=== PATIENT | female | born 1985 | race Two or more races ===

== ENCOUNTER 2017-12-10 09:00 | Emergency (ER) | payer OTHER ==
--- NOTE | 2017-12-10 09:35 | EDM.PDOC ---
ED HPI GENERAL MEDICAL PROBLEM - General Chief Complaint: General Stated Complaint: SWOLLEN RT SIDE FACE Time Seen by Provider: 12/10/17 09:33 Source of Information: Reports: Patient - History of Present Illness INITIAL COMMENTS - FREE TEXT/NARRATIVE: HISTORY AND PHYSICAL: History of present illness: []Patient presents with right-sided facial pain and swelling that began this morning she denies fever nausea vomiting chills sweats she does have known poor dentition on the right upper but there is no swelling or tenderness associated with these teeth which are warranted gumline No fever nausea vomiting chills sweats no chest pain shortness breath headache dizziness palpitation no bowel or urine symptoms Patient notes Ceclor allergy however she has taken amoxicillin on numerous occasions without any reaction Review of systems: As per history of present illness and below otherwise all systems reviewed and negative. Past medical history: As per history of present illness and as reviewed below otherwise noncontributory. Surgical history: As per history of present illness and as reviewed below otherwise noncontributory. Social history: No reported history of drug or alcohol abuse. Family history: As per history of present illness and as reviewed below otherwise noncontributory. Physical exam: HEENT: Atraumatic, normocephalic, pupils reactive, negative for conjunctival pallor or scleral icterus, mucous membranes moist, throat clear, neck supple, nontender, trachea midline. Her dentition is above tender maxillary sinus on the right and in general signs Lungs: Clear to auscultation, breath sounds equal bilaterally, chest nontender. Heart: S1S2, regular, negative for clicks, rubs, or JVD. Abdomen: Soft, nondistended, nontender. Negative for masses or hepatosplenomegaly. Negative for costovertebral tenderness. Pelvis: Stable nontender. Genitourinary: Deferred. Rectal: Deferred. Extremities: Atraumatic, negative for cords or calf pain. Neurovascular unremarkable. Neuro: Awake, alert, oriented. Cranial nerves II through XII unremarkable. Cerebellum unremarkable. Motor and sensory unremarkable throughout. Exam nonfocal. Diagnostics: [Clinical ] Therapeutics: []Amoxicillin 875 by mouth twice a day #20 no refill Impression: [Sinusitis Dental caries ] Definitive disposition and diagnosis as appropriate pending reevaluation and review of above. Right side of face Pain Score (Numeric/FACES): 7 - Related Data Home Meds: Home Meds . 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 Social & Family History - Family History Family Medical History: Noncontributory - Tobacco Use Smoking Status *Q: Never Smoker Second Hand Smoke Exposure: No - Caffeine Use Caffeine Use: Reports: Coffee - Recreational Drug Use Recreational Drug Use: No ED ROS GENERAL - Review of Systems Review Of Systems: See Below ED EXAM, GENERAL - Physical Exam Exam: See Below Course - Vital Signs Last Recorded V/S: Last Vital Signs Temp 96.9 F 12/10/17 09:10 Pulse 78 12/10/17 09:10 Resp 16 12/10/17 09:10 BP 149/90 H 12/10/17 09:10 Pulse Ox 96 12/10/17 09:10 Departure - Departure Time of Disposition: 09:36 Disposition: Home, Self-Care 01 Condition: Good Clinical Impression: Sinusitis - Discharge Information Referrals: PCP,None [Primary Care Provider] - Forms: ED Department Discharge Additional Instructions: The following information is given to patients seen in the emergency department who are being discharged to home. This information is to outline your options for follow-up care. We provide all patients seen in our emergency department with a follow-up referral. The need for follow-up, as well as the timing and circumstances, are variable depending upon the specifics of your emergency department visit. If you don't have a primary care physician on staff, we will provide you with a referral. We always advise you to contact your personal physician following an emergency department visit to inform them of the circumstance of the visit and for follow-up with them and/or the need for any referrals to a consulting specialist. The emergency department will also refer you to a specialist when appropriate. This referral assures that you have the opportunity for follow-up care with a specialist. All of these measure are taken in an effort to provide you with optimal care, which includes your follow-up. Under all circumstances we always encourage you to contact your private physician who remains a resource for coordinating your care. When calling for follow-up care, please make the office aware that this follow-up is from your recent emergency room visit. If for any reason you are refused follow-up, please contact the [facility] emergency department at and asked to speak to the emergency department charge nurse.
== END 2017-12-10 09:53 | disposition home or self-care (01) ==
LOC: MW.ED 09:00
DX: J32.9 Chronic sinusitis, unspecified (principal); K02.9 Dental caries, unspecified
CPT/HCPCS: 99283

== ENCOUNTER 2018-08-26 16:58 | Emergency (ER) | payer MEDICAID ==
[2018-08-26] MEDS ORDERED: Sodium Chloride 0.9% 1,000 ML IV ONE (17:20)
[2018-08-26] MEDS ORDERED: Ondansetron 4 MG/2 ML SDV IVPUSH ONE (17:20)
--- NOTE | 2018-08-26 17:21 | EDM.PDOC ---
<Wicho Ospina - Last Filed: 08/26/18 17:52> ED HPI GENERAL MEDICAL PROBLEM - General Chief Complaint: Gastrointestinal Problem Stated Complaint: flu Time Seen by Provider: 08/26/18 17:21 Source of Information: Reports: Patient - History of Present Illness INITIAL COMMENTS - FREE TEXT/NARRATIVE: HISTORY AND PHYSICAL: History of present illness: [Patient presents with abdominal pain 5 out of 10 right lower quadrant along with fever nausea vomiting diarrhea which began earlier today ] Review of systems: As per history of present illness and below otherwise all systems reviewed and negative. Past medical history: As per history of present illness and as reviewed below otherwise noncontributory. Surgical history: As per history of present illness and as reviewed below otherwise noncontributory. Social history: No reported history of drug or alcohol abuse. Family history: As per history of present illness and as reviewed below otherwise noncontributory. Physical exam: HEENT: Atraumatic, normocephalic, pupils reactive, negative for conjunctival pallor or scleral icterus, mucous membranes moist, throat clear, neck supple, nontender, trachea midline. Lungs: Clear to auscultation, breath sounds equal bilaterally, chest nontender. Heart: S1S2, regular, negative for clicks, rubs, or JVD. Abdomen: Soft, nondistended, tenderness on deep palpation right lower quadrant no guarding or rebound Negative for masses or hepatosplenomegaly. Negative for costovertebral tenderness. Pelvis: Stable nontender. Genitourinary: Deferred. Rectal: Deferred. Extremities: Atraumatic, negative for cords or calf pain. Neurovascular unremarkable. Neuro: Awake, alert, oriented. Cranial nerves II through XII unremarkable. Cerebellum unremarkable. Motor and sensory unremarkable throughout. Exam nonfocal. Diagnostics: [EBC CMP blood cultures lipase CT abdomen pelvis with contrast UA hCG] Therapeutics: [Normal saline Zofran Morphine ] Impression: [Abdominal pain Fever nausea vomiting diarrhea] Definitive disposition and diagnosis as appropriate pending reevaluation and review of above. Abdomen Pain Score (Numeric/FACES): 6 - Related Data Allergies Allergy/AdvReac Type Severity Reaction Status Date / Time cefaclor Allergy Anaphylactic Verified 02/03/18 21:14 Shock Home Meds: Home Meds . 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, - Infectious Disease History Infectious Disease History: Reports: Chicken Pox - Past Surgical History Female Surgical History: Reports: Section (x 3, 2008, 2010, 2012) Social & Family History - Family History Family Medical History: Noncontributory - Caffeine Use Caffeine Use: Reports: Coffee, Energy Drinks, Soda, Tea Course - Vital Signs Last Recorded V/S: Last Vital Signs Temp 37.1 C 08/26/18 19:10 Pulse 85 08/26/18 19:10 Resp 18 08/26/18 19:10 BP 129/85 08/26/18 19:10 Pulse Ox 98 08/26/18 19:10 - Orders/Labs/Meds Orders: Active Orders 24 hr Category Date Time Status CULTURE BLOOD [BC] Stat Lab 08/26/18 17:28 Received CULTURE BLOOD [BC] Stat Lab 08/26/18 17:28 Received Blood Culture x2 Reflex Set [OM.PC] Stat Oth 08/26/18 17:22 Ordered Labs: Laboratory Tests 08/26/18 08/26/18 08/26/18 Range/Units 17:39 17:39 17:55 WBC 15.05 H (4.0-11.0) K/uL RBC 5.07 (4.30-5.90) M/uL Hgb 15.7 (12.0-16.0) g/dL Hct 44.2 (36.0-46.0) % MCV 87.2 (80.0-98.0) fL MCH 31.0 (27.0-32.0) pg MCHC 35.5 (31.0-37.0) g/dL RDW Std Deviation 40.1 (28.0-62.0) fl RDW Coeff of Khang 13 (11.0-15.0) % Plt Count 295 (150-400) K/uL MPV 10.00 (7.40-12.00) fL Neut % (Auto) 91.5 H (48.0-80.0) % Lymph % (Auto) 3.5 L (16.0-40.0) % [place] % (Auto) 4.6 (0.0-15.0) % Eos % (Auto) 0.3 (0.0-7.0) % Baso % (Auto) 0.1 (0.0-1.5) % Neut # (Auto) 13.8 H (1.4-5.7) K/uL Lymph # (Auto) 0.5 L (0.6-2.4) K/uL [place] # (Auto) 0.7 (0.0-0.8) K/uL Eos # (Auto) 0.0 (0.0-0.7) K/uL Baso # (Auto) 0.0 (0.0-0.1) K/uL Nucleated RBC % 0.0 /100WBC Nucleated RBCs # 0 K/uL Sodium 138 (136-145) mmol/L Potassium 3.7 (3.5-5.1) mmol/L Chloride 101 (98-107) mmol/L Carbon Dioxide 24.7 (21.0-32.0) mmol/L BUN 12 (7.0-18.0) mg/dL Creatinine 0.9 (0.6-1.0) mg/dL Est Cr Clr Drug Dosing 75.61 mL/min Estimated GFR (MDRD) > 60.0 ml/min Glucose 119 H (74-106) mg/dL Calcium 9.2 (8.5-10.1) mg/dL Total Bilirubin 0.9 (0.2-1.0) mg/dL AST 34 (15-37) IU/L ALT 58 (14-63) IU/L Alkaline Phosphatase 78 (46-116) U/L Total Protein 8.3 H (6.4-8.2) g/dL Albumin 4.4 (3.4-5.0) g/dL Globulin 3.9 (2.6-4.0) g/dL Albumin/Globulin Ratio 1.1 (0.9-1.6) Lipase 77 (73-393) U/L Urine Color YELLOW Urine Appearance CLOUDY Urine pH 5.5 (5.0-8.0) Ur Specific Carson 1.025 (1.001-1.035) Urine Protein TRACE H (NEGATIVE) mg/dL Urine Glucose (UA) NEGATIVE (NEGATIVE) mg/dL Urine Ketones 15 H (NEGATIVE) mg/dL Urine Occult Blood SMALL H (NEGATIVE) Urine Nitrite NEGATIVE (NEGATIVE) Urine Bilirubin NEGATIVE (NEGATIVE) Urine Urobilinogen 0.2 (<2.0) EU/dL Ur Leukocyte Esterase NEGATIVE (NEGATIVE) Urine RBC 0-2 (0-2/HPF) Urine WBC 0-3 (0-5/HPF) Ur Epithelial Cells MANY (NONE-FEW) Amorphous Sediment HEAVY (NEGATIVE) Urine Bacteria FEW (NEGATIVE) Urine HCG, Qual (NEGATIVE) 08/26/18 Range/Units 17:55 WBC (4.0-11.0) K/uL RBC (4.30-5.90) M/uL Hgb (12.0-16.0) g/dL Hct (36.0-46.0) % MCV (80.0-98.0) fL MCH (27.0-32.0) pg MCHC (31.0-37.0) g/dL RDW Std Deviation (28.0-62.0) fl RDW Coeff of Khang (11.0-15.0) % Plt Count (150-400) K/uL MPV (7.40-12.00) fL Neut % (Auto) (48.0-80.0) % Lymph % (Auto) (16.0-40.0) % [place] % (Auto) (0.0-15.0) % Eos % (Auto) (0.0-7.0) % Baso % (Auto) (0.0-1.5) % Neut # (Auto) (1.4-5.7) K/uL Lymph # (Auto) (0.6-2.4) K/uL [place] # (Auto) (0.0-0.8) K/uL Eos # (Auto) (0.0-0.7) K/uL Baso # (Auto) (0.0-0.1) K/uL Nucleated RBC % /100WBC Nucleated RBCs # K/uL Sodium (136-145) mmol/L Potassium (3.5-5.1) mmol/L Chloride (98-107) mmol/L Carbon Dioxide (21.0-32.0) mmol/L BUN (7.0-18.0) mg/dL Creatinine (0.6-1.0) mg/dL Est Cr Clr Drug Dosing mL/min Estimated GFR (MDRD) ml/min Glucose (74-106) mg/dL Calcium (8.5-10.1) mg/dL Total Bilirubin (0.2-1.0) mg/dL AST (15-37) IU/L ALT (14-63) IU/L Alkaline Phosphatase (46-116) U/L Total Protein (6.4-8.2) g/dL Albumin (3.4-5.0) g/dL Globulin (2.6-4.0) g/dL Albumin/Globulin Ratio (0.9-1.6) Lipase (73-393) U/L Urine Color Urine Appearance Urine pH (5.0-8.0) Ur Specific Carson (1.001-1.035) Urine Protein (NEGATIVE) mg/dL Urine Glucose (UA) (NEGATIVE) mg/dL Urine Ketones (NEGATIVE) mg/dL Urine Occult Blood (NEGATIVE) Urine Nitrite (NEGATIVE) Urine Bilirubin (NEGATIVE) Urine Urobilinogen (<2.0) EU/dL Ur Leukocyte Esterase (NEGATIVE) Urine RBC (0-2/HPF) Urine WBC (0-5/HPF) Ur Epithelial Cells (NONE-FEW) Amorphous Sediment (NEGATIVE) Urine Bacteria (NEGATIVE) Urine HCG, Qual NEGATIVE (NEGATIVE) Meds: Medications Discontinued Medications Generic Name Dose Route Start Last Admin Trade Name Rodneyq PRN Reason Stop Dose Admin Sodium Chloride 1,000 mls @ 999 mls/hr 08/26/18 17:20 08/26/18 17:43 Normal Saline IV 08/26/18 18:20 999 mls/hr STAT ONE Administration Morphine Sulfate 2 mg 08/26/18 17:51 08/26/18 17:58 Morphine IVPUSH 08/26/18 17:52 2 mg ONETIME ONE Administration Ondansetron HCl 8 mg 08/26/18 17:20 08/26/18 17:43 Zofran IVPUSH 08/26/18 17:21 8 mg ONETIME ONE Administration Departure - Departure Disposition: Home, Self-Care 01 Clinical Impression: Abdominal pain - Discharge Information Referrals: PCP,None [Primary Care Provider] - Forms: ED Department Discharge Additional Instructions: The following information is given to patients seen in the emergency department who are being discharged to home. This information is to outline your options for follow-up care. We provide all patients seen in our emergency department with a follow-up referral. The need for follow-up, as well as the timing and circumstances, are variable depending upon the specifics of your emergency department visit. If you don't have a primary care physician on staff, we will provide you with a referral. We always advise you to contact your personal physician following an emergency department visit to inform them of the circumstance of the visit and for follow-up with them and/or the need for any referrals to a consulting specialist. The emergency department will also refer you to a specialist when appropriate. This referral assures that you have the opportunity for followup care with a specialist. All of these measure are taken in an effort to provide you with optimal care, which includes your followup. Under all circumstances we always encourage you to contact your private physician who remains a resource for coordinating your care. When calling for followup care, please make the office aware that this follow-up is from your recent emergency room visit. If for any reason you are refused follow-up, please contact the [facility] emergency department at and asked to speak to the emergency department charge nurse. Clear liquids as discussed follow-up primary medical doctor as needed as discussed and return as needed as discussed <Rony Joshi - Last Filed: 08/26/18 20:23> ED ROS GENERAL - Review of Systems Review Of Systems: ROS reveals no pertinent complaints other than HPI. ED EXAM, GENERAL - Physical Exam Exam: See Below (The dictation) Departure - Departure Time of Disposition: 20:23 Condition: Good
[2018-08-26] MEDS ORDERED: Morphine 2 MG/ML Syringe IVPUSH ONE (17:51)
[2018-08-26 18:05] LABS: CHLORIDE,CL 101 mmol/L (98-107); SODIUM,NA 138 mmol/L (136-145)
--- NOTE | 2018-08-26 19:48 | CT ---
INDICATION: PAIN IN ABD. N/V/D. COMPARISON: None available. TECHNIQUE: Routine axial CT images of the abdomen and pelvis following the uneventful administration of IV contrast. Sagittal and coronal reformatted series were also generated and reviewed. Total exam DLP 1,482 mGy-cm. FINDINGS: Lower chest is unremarkable. - There is mild hepatomegaly with the liver measuring 23.8 cm craniocaudad. No suspicious intrahepatic mass or biliary ductal dilatation. The gallbladder, pancreas, spleen and adrenal glands are within normal limits. There is symmetric enhancement of the kidneys. No hydronephrosis. - The major vascular structures demonstrate normal course and caliber. There is no evidence of aneurysm. There is no suspicious abdominal or pelvic adenopathy. - There is no bowel obstruction or ascites. The appendix is normal. No focal inflammatory change, perforation or abscess. - The urinary bladder is decompressed. The uterus is unremarkable for age. Ill-defined low attenuation lesions in both adnexa, nonspecific. There is no free fluid in the pelvis. - Limbus vertebral body at T12. No acute or aggressive osseous findings. IMPRESSION: 1. No acute findings in the abdomen or pelvis. No specific CT abnormality to explain the patient`s reported symptoms. 2. Other findings, as above. Dictated by Napoleon Daly MD @ 08/26/2018 7:45:27 PM Please note that all CT scans at this facility use dose modulation, iterative reconstruction, and/or weight-based dosing when appropriate to reduce radiation dose to as low as reasonably achievable. Dictated by: Napoleon Daly MD @ 08/26/2018 19:45:54 (Electronically Signed)
== END 2018-08-26 20:40 | disposition home or self-care (01) ==
LOC: MW.ED 16:58
DX: R10.31 Right lower quadrant pain (principal); Z88.8 Allergy status to other drugs, medicaments and biological substances
CPT/HCPCS: 36415; 74177; 80053; 81001; 81025; 83690; 85025; 87040; 96361; 96374; 96375; 99284; J2270; J2405; J7040

== ENCOUNTER 2018-09-23 08:53 | Day surgery (SDC) | payer MEDICAID, OTHER ==
[~2018-09-23 08:53] MED LIST: Lactated Ringers 1,000 ML IV SCH
[2018-09-23] MEDS ORDERED: Midazolam 1 MG/ML 2 ML SDV ONE (08:54)
[2018-09-23] MEDS ORDERED: Lidocaine 2% 5 ML SDV ONE (08:54)
[2018-09-23] MEDS ORDERED: fentaNYL 100 MCG/2 ML SDV ONE (08:54)
[2018-09-23] MEDS ORDERED: Propofol 200 MG/20 ML SDV ONE (08:54)
[2018-09-23] MEDS ORDERED: Fluorescein 5 ML Vial ONE (09:28)
[2018-09-23] MEDS ORDERED: Methylene Blue 50 MG/10 ML Ampule ONE (09:28)
[2018-09-23] MEDS ORDERED: Bupivacaine 0.25% 10 ML SDV ONE (09:28)
--- NOTE | 2018-09-23 09:30 | PCM.PREANE ---
Preanesthetic Assessment - Anesthesia/Transfusion/Family Hx Anesthesia History: Prior Anesthesia Without Reaction Transfusion History: No Prior Transfusion(s) - Review of Systems General: No Symptoms Pulmonary: No Symptoms Cardiovascular: No Symptoms Gastrointestinal: No Symptoms Neurological: No Symptoms Other: Reports: None - Physical Assessment Height: 1.61 m Weight: 104.78 kg ASA Class: 3 Mental Status: Alert & Oriented x3 Airway Class: Mallampati = 1 Dentition: Reports: Broken Tooth/Teeth (left upper front tooth) Thyro-Mental Finger Breadths: 3 Mouth Opening Finger Breadths: 3 ROM/Head Extension: Full Lungs: Clear to Auscultation, Normal Respiratory Effort Cardiovascular: Regular Rate, Regular Rhythm - Lab Values: Laboratory Last Values WBC 10.98 K/uL (4.0-11.0) 09/22/18 13:09 RBC 4.74 M/uL (4.30-5.90) 09/22/18 13:09 Hgb 14.5 g/dL (12.0-16.0) 09/22/18 13:09 Hct 41.4 % (36.0-46.0) 09/22/18 13:09 MCV 87.3 fL (80.0-98.0) 09/22/18 13:09 MCH 30.6 pg (27.0-32.0) 09/22/18 13:09 MCHC 35.0 g/dL (31.0-37.0) 09/22/18 13:09 RDW Std Deviation 39.7 fl (28.0-62.0) 09/22/18 13:09 RDW Coeff of Khang 12 % (11.0-15.0) 09/22/18 13:09 Plt Count 316 K/uL (150-400) 09/22/18 13:09 MPV 9.60 fL (7.40-12.00) 09/22/18 13:09 Nucleated RBC % 0.0 /100WBC 09/22/18 13:09 Nucleated RBCs # 0 K/uL 09/22/18 13:09 HCG, Qual NEGATIVE (NEG) 09/22/18 13:09 - Allergies Allergies/Adverse Reactions: Allergies Allergy/AdvReac Type Severity Reaction Status Date / Time cefaclor [From [facility]] Allergy Anaphylactic Verified 09/22/18 12:43 Shock - Acknowledgements Anesthesia Type Planned: General Anesthesia Pt an Appropriate Candidate for the Planned Anesthesia: Yes Alternatives and Risks of Anesthesia Discussed w Pt/Guardian: Yes Pt/Guardian Understands and Agrees with Anesthesia Plan: Yes PreAnesthesia Questionnaire HEENT History: Reports: None Cardiovascular History: Reports: None Respiratory History: Reports: None Gastrointestinal History: Reports: GERD (diet related) Genitourinary History: Reports: None 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 OB/BYN History: ovarian cysts Musculoskeletal History: Reports: Fracture Other Musculoskeletal History: hx of fx ankle Neurological History: Reports: None Psychiatric History: Reports: None Endocrine/Metabolic History: Reports: Obesity/BMI 30+ (morbid obesity) Hematologic History: Reports: None Immunologic History: Reports: None Oncologic (Cancer) History: Reports: None Dermatologic History: Reports: None - Infectious Disease History Infectious Disease History: Reports: Chicken Pox - Past Surgical History HEENT Surgical History: Reports: Other (See Below) (wisdom teeth extractions) Female Surgical History: Reports: Section (x2) Other Female Surgeries/Procedures: x3 - SUBSTANCE USE Smoking Status *Q: Never Smoker Days Per Week of Alcohol Use: 0 (ocassional etoh) Recreational Drug Use History: No - HOME MEDS Home Medications: Home Meds . [No Known Home Meds] 08/26/18 [History] - CURRENT (IN HOUSE) MEDS Current Meds: Current Medications Lactated Ringer's (Ringers, Lactated) 1,000 mls @ 125 mls/hr IV ASDIRECTED LEEANNE Discontinued Medications Fentanyl (Sublimaze) Confirm Administered Dose 100 mcg .ROUTE .STK-MED ONE Stop: 09/23/18 08:55 Lidocaine (Xylocaine-Mpf 2%) Confirm Administered Dose 5 ml .ROUTE .STK-MED ONE Stop: 09/23/18 08:55 Midazolam HCl (Versed 1 Mg/Ml) Confirm Administered Dose 2 mg .ROUTE .STK-MED ONE Stop: 09/23/18 08:55 Propofol (Diprivan 20 Ml) Confirm Administered Dose 200 mg .ROUTE .STK-MED ONE Stop: 09/23/18 08:55
[2018-09-23] MEDS ORDERED: HYDROmorphone 2 MG/ML SDV IVPUSH PRN (09:46)
[2018-09-23] MEDS ORDERED: Ondansetron 4 MG/2 ML SDV IVPUSH PRN (09:46)
[2018-09-23] MEDS ORDERED: Rocuronium 100 MG/10 ML MDV ONE (10:14)
[2018-09-23] MEDS ORDERED: Succinylcholine 200 MG/10 ML MDV ONE (10:14)
[2018-09-23] MEDS ORDERED: Dexamethasone 4 MG/ML 5 ML MDV ONE (10:47)
[2018-09-23] MEDS ORDERED: Ondansetron 4 MG/2 ML SDV ONE (10:47)
[2018-09-23] MEDS ORDERED: Ketorolac 30 MG/ML SDV ONE (10:47)
[2018-09-23] MEDS ORDERED: Neostigmine Methylsulfate 1 MG/ML 5 ML Syringe ONE (10:48)
[2018-09-23] MEDS ORDERED: Glycopyrrolate 0.2 MG/ML SDV ONE ×2 (10:48→11:35)
[2018-09-23] MEDS ORDERED: HYDROmorphone 2 MG/ML Syringe ONE (11:36)
[2018-09-23] MEDS ORDERED: Octyl 2-Cyanoacrylate 1 Tube ONE (11:44)
--- NOTE | 2018-09-23 12:05 | PCM.OPNOTE ---
- General Post-Op/Procedure Note Date of Surgery/Procedure: 09/23/18 Operative Procedure(s): operative laparoscopy with extensive lysis of adhesions , left salpingoophorectomy. Findings: dense adhesions of omentum to prior scar. Filmy adhesions of anterior cul de sac. Normal right tube and ovary with small fibroma. No endometriosis. Left hydrosalpinx, densely adherent to left ovary, ovary is adhesed to medial leaf of broad ligament. Pre Op Diagnosis: Pelvic pain, left adnexal mass. Post-Op Diagnosis: Same Anesthesia Technique: General ET Tube Primary Surgeon: Linda Lizarraga Anesthesia Provider: Rashida Khan General Doc: Sangeetha Mcdowell Pathology: left tube and ovary Fluid Replacement, Intraop: 1,200 EBL in mLs: 20 Complications: None Known. Condition: Good
[2018-09-23] MEDS: fentaNYL 100 MCG/2 ML SDV IVPUSH PRN ×2 (12:23→13:03)
--- NOTE | 2018-09-23 13:42 | PCM.POSTAN ---
POST ANESTHESIA ASSESSMENT - MENTAL STATUS Mental Status: Alert, Oriented - RESPIRATORY Respiratory Status: Respiratory Rate WNL, Airway Patent, O2 Saturation Stable - CARDIOVASCULAR CV Status: Pulse Rate WNL, Blood Pressure Stable - GASTROINTESTINAL GI Status: No Symptoms - POST OP HYDRATION Hydration Status: Adequate & Stable
--- NOTE | 2018-09-23 13:43 | PCM48HPAN ---
Post Anesthesia Note - EVALUATION WITHIN 48HRS OF ANESTHETIC Vital Signs in Normal Range: Yes Patient Participated in Evaluation: Yes Respiratory Function Stable: Yes Airway Patent: Yes Cardiovascular Function Stable: Yes Hydration Status Stable: Yes Pain Control Satisfactory: Yes Nausea and Vomiting Control Satisfactory: Yes Mental Status Recovered: Yes Resp Rate: 22
--- NOTE | 2018-09-23 14:27 | OR ---
SURGEON: Linda Lizarraga M.D. DATE OF PROCEDURE: 09/23/2018 PREOPERATIVE DIAGNOSES: Pelvic pain, left adnexal mass. POSTOPERATIVE DIAGNOSES: Pelvic pain, left adnexal mass with extensive pelvic adhesions and left tubo- ovarian complex with hydrosalpinx. PROCEDURES: Operative laparoscopy, extensive lysis of adhesions, left salpingo-oophorectomy. PRIMARY SURGEON: Linda Lizarraga MD. WORKERS COMPENSATION EXAMINER: Dara Mcdowell RN. ANESTHESIA: General endotracheal. FLUIDS: 1200 mL of crystalloid. ESTIMATED BLOOD LOSS: 20 mL. FINDINGS: The uterus sounded to 8 cm, was anteverted, and mobile on examination. Upon laparoscopy, there were dense adhesions noted between the omentum and the prior scar Pfannenstiel incision in the lower abdomen. There was a small right fibroma on the right ovary. There were filmy adhesions of the anterior cul-de-sac. There was no evidence of endometriosis. There was a large left hydrosalpinx densely adhered to the ovary and epiploica of the sigmoid as well as the ovary being adherent to the medial leaf of the broad ligament. At the end of the procedure, the left ureter was identified and was peristalsing without any evidence of trauma. COMPLICATIONS: None known. DISPOSITION: Stable to recovery. BRIEF HISTORY: This is a 32-year-old female. She is G3, P3, three prior deliveries when she lived in [place]. Following her last delivery, she began having pain in the left lower quadrant. She was noted to have an 8 cm cyst. She re- presented in the fall of 2017 to [facility] in the emergency room and was felt to have a left tubo-ovarian abscess. She was treated inpatient with antibiotics and for prolonged time-period with outpatient oral antibiotics. She has been afebrile for many months now, but persistently has pain and upon ultrasound there was a remaining 8 cm complex fluid-filled structure adjacent to the ovary, consistent with hydrosalpinx; and therefore, I did offer to proceed with laparoscopic evaluation with possible left salpingectomy, possible left oophorectomy, evaluation for adhesions, and possible biopsy or treatment of endometriosis with risks discussed including bleeding; infection; injury to bowel, bladder, blood vessels, or other organs; risk of thromboembolic event; and risk of anesthesia. Also, risks of laparotomy were discussed as well as risk of future infertility due to tubal damage. She understands this and is accepting. She has completed her family. DESCRIPTION OF PROCEDURE: With the patient in dorsal lithotomy position, under adequate general endotracheal anesthesia, the abdomen was prepped with chlorhexidine and the perineum and vagina were prepped with Betadine and draped in usual fashion for laparoscopic surgery. SCDs were in place. The bladder had been drained with a red Hewitt catheter and an appropriate time-out was held. Bimanual examination was performed with findings as noted above. The speculum was placed in the vagina. The cervix was grasped with an Allis clamp and dilated to an 8 mm Hegar dilator. The ZUMI uterine manipulator was placed without any difficulty and the balloon was filled with air. The speculum was removed from the vagina and envelope sealing machine operator's gloves were then changed. Attention was turned abdominally where 3 mL of 0.25% Marcaine was injected cephalad from the umbilicus. A 5 mm incision was made with a scalpel. The anterior abdominal wall was elevated. Veress needle was inserted. Opening pressure was 5 mmHg. CO2 was insufflated to develop an adequate pneumoperitoneum of 15 mmHg and the 5 mm port was placed. The laparoscope was placed into the abdominal cavity and there was no evidence of any trauma from the port placement site. There were obviously dense, extensive adhesions of the omentum to the anterior abdominal wall. Therefore, two additional ports were placed 2 cm medial and cephalad from the anterior superior iliac spine on the right and the left under direct visualization without any difficulty. The patient was then placed in steep Trendelenburg position. The adhesions were lysed using LigaSure, and once the extensive dense adhesions of the omentum had been lysed, the pelvis was more easily visualized. There were some filmy adhesions in the anterior cul-de-sac that were lysed. The uterus was then elevated and bowel was moved out of the pelvis. The left tubo-ovarian complex was densely adherent to the bowel epiploica, the presacral area, and the medial leaf of the broad ligament. The right tube and ovary were free without any adhesions or lesions and a small fibroma was noted on the right ovary. Attention was then turned to the left tubo-ovarian complex, and I began to proceed with dissection. Initially, I used the LigaSure to excise clearly visible adhesions between the ovary and the tube and was able to free up the fimbriae of the tube. In doing so, fluid exuded through the tube and this was clear fluid, not purulent in nature. The fimbriae of the tube were adherent to the bowel epiploica and these were lysed, being very cautious to be near the fimbriae and nowhere near the bowel. The Harmonic Juvenal was utilized to lyse these adhesions and dissection was performed with a Maryland clamp, and I was able to identify a plane between the ovary and the medial leaf of the broad ligament. Hydrodissection was then utilized to extend this plane, and using the Harmonic Juvenal to lyse adhesions, traction and countertraction, and hydrodissection, I was able to free the ovary from the medial leaf of the broad ligament. The ureter was identified and was just below the field of dissection. There was no trauma to any of the overlying tissue over the ureter. The peritoneum of the ureter was intact and the ureter was peristalsing normally. With the ovary freed, I was able to elevate the ovary and the tube together and now fairly normal anatomy was restored with the tube and ovary still densely adherent. I did doubly cauterize and ligate the infundibulopelvic ligament and then proceeded proximally along the mesosalpinx to the proximal mesosalpinx where the LigaSure was utilized to cross clamp the tube and utero-ovarian ligament. This being completed, a 10 mm port had been placed over the prior delivery scar in the midline and the EndoCatch bag was placed. The tube and ovary were placed in the EndoCatch bag. I extended the incision of the fascia laterally to allow removal of the tube and ovary, and this being completed, the 10 mm port was replaced to contain the insufflation and the pelvis was carefully irrigated and carefully inspected under high and low pressure and was hemostatic. Therefore, all the instruments were removed from the pelvis and the abdomen was completely desufflated. The ports were then removed. The fascia of the lower 10 mm port was closed with a running suture of 0 Polysorb. The other incisions as well as the skin portion of this incision was closed with subcuticular suture of 3-0 Monocryl. The ZUMI uterine manipulator was removed from the vagina. Final sponge, needle, and instrument counts were reported as correct. There were no known complications. The patient was transferred to recovery in good condition. MARY / PARVEEN /[id number] MTDD
== END 2018-09-23 14:00 | disposition home or self-care (01) ==
LOC: MW.SDS 08:53
PROVIDERS: ATTEND Obstetrics & Gynecology
DX: N83.02 Follicular cyst of left ovary (principal); N73.6 Female pelvic peritoneal adhesions (postinfective); N70.11 Chronic salpingitis; E66.01 Morbid (severe) obesity due to excess calories; Z68.41 Body mass index [BMI] 40.0-44.9, adult; Z88.1 Allergy status to other antibiotic agents
CPT/HCPCS: 36415; 58661; 84703; 85027; A9270; J0131; J0330; J1100; J1170; J1885; J2001; J2250; J2405; J2704; J3010; J3490; J7120; 00840; 88305

== ENCOUNTER 2019-06-13 13:09 | Emergency (ER) | payer MEDICAID, OTHER ==
[2019-06-13] MEDS ORDERED: Prochlorperazine 10 MG in Sodium Chloride 0.9% 50 ML IV ONE (14:37)
[2019-06-13] MEDS ORDERED: Sodium Chloride 0.9% 1,000 ML IV ONE (14:37)
[2019-06-13] MEDS ORDERED: Acetaminophen 500 MG Tab PO ONE (14:37)
[2019-06-13] MEDS ORDERED: diphenhydrAMINE 50 MG/ML SDV IVPUSH ONE (14:37)
[2019-06-13] MEDS ORDERED: Ketorolac 30 MG/ML SDV IVPUSH ONE (14:37)
--- NOTE | 2019-06-13 15:07 | CT ---
Head CT Technique: Multiple axial sections through the brain were obtained. Intravenous contrast was not utilized. Comparison: No prior intracranial imaging is available. Findings: Hyperdense mass is noted at the foramen of Bowers measuring about 1.2 cm which is felt compatible with colloid cyst. Ventricles are mildly dilated. This colloid cyst may be causing mild ventricular obstruction at the foramen of Bowers. No abnormal parenchymal densities are seen. No evidence of intracranial hemorrhage. No midline shift or mass effect is seen. Bone window settings were reviewed. Visualized mastoid sinuses are clear. Mucosal thickening is noted within both maxillary sinuses which is believed to be chronic. No acute calvarial abnormality is appreciated. Impression: 1. 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 2. Lateral ventricles are mildly dilated suggesting the possibility of the colloid cyst causing mild obstruction at the foramen of Monro. 3. No acute intracranial abnormality is otherwise seen. 4. Chronic-appearing findings within both inferior maxillary sinuses. Diagnostic code #3 Study was dictated in [place] Time
--- NOTE | 2019-06-13 16:26 | EDM.PDOC ---
ED HPI GENERAL MEDICAL PROBLEM - General Chief Complaint: Headache Stated Complaint: dizzy Time Seen by Provider: 06/13/19 14:14 - History of Present Illness INITIAL COMMENTS - FREE TEXT/NARRATIVE: HPI 33-year-old female migraineur presents for evaluation of one week, apparently gradual in onset headache that is more severe than her usual headaches and refractory to acetaminophen and Excedrin. Patient notes intermittent blurry vision. * Denies changes in hearing, fevers, neck stiffness, rashes, neck pain, temporal pain, jaw pain with chewing, dental pain, minor neck trauma, chiropractic manipulation, or head trauma. * Denies anticoagulation or hypercoaguable history. * No family members with similar symptoms. Unable to identify any higher risk exposures to possible carbon monoxide. * No OCP usage, denies current or in the last 3 months. M/S/F/SocHx notable for: please see HPI; remainder reviewed with patient and in chart. ROS: Negative constitutional, eye, cardiovascular, pulmonary, GI, , MSK, skin , neurologic, psychiatric, endocrine unless noted in the HPI. Exam HR 83, RR 20, BP 152/85, temperature (pending), SaO2 100% on room air. Gen: pleasant, nontoxic-appearing, appears moderately uncomfortable. HEENT: NC, AT,Dentition intact without visible caries. No frontal or maxillary sinus TTP. Temples without TTP bilaterally, equal 2+ temporal artery pulses. No paraspinal posterior neck pain. Resp: clear to auscultation bilaterally. Card: RRR GI: NT/ND : Deferred MSK: No visible deformities, strength and tone WNL. Skin: Normal color with no visible lesions. Neuro: alert and oriented 3, no facial asymmetry, no gaze preference, no slurring of speech. CN II-III: pupils equal and reactive (3->2mm bilaterally); III, IV, : EOMI, V1-V3: sensation to touch bilaterally intact; VII: no facial asymmetry (frown / smile); VIII: no nystagmus; X: phonation intact, uvula midline; XI: trapezius 5/5 bilaterally, XII: tongue midline. Psych: Mood and affect appropriate. Labs / Imaging (pertinent): CT head: 1. 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 2. Lateral ventricles are mildly dilated suggesting the possibility of the colloid cyst causing mild obstruction at the foramen of Monro. 3. No acute intracranial abnormality is otherwise seen. 4. Chronic-appearing findings within both inferior maxillary sinuses. MDM Previous chart, nursing note, and vitals reviewed. A: 33-year-old female migraineur presents for evaluation of one week, apparently gradual in onset headache that is more severe than her usual headaches and refractory to acetaminophen and Excedrin. DDx: migraine / tension headache, cluster headache, sentinel bleed/SAH, infection (DREDGE OR BARGE SHORE HAND vs RICHARDSON secondary to non-DREDGE OR BARGE SHORE HAND focal infection), tumor/mass effect, hypertensive encephalopathy, glaucoma or iritis, idiopathic intracranial hypertension, cavernous sinus thrombosis, temporal arteritis. Evaluation: * Migraine / tension headache - doubt a migraine given the lack consistency of symptoms with prior headaches. * Cluster - doubt cluster headache given the absence of unilateral symptoms, eye watering, swelling, or nasal congestion. * Jonancy bleed/SAH - Doubt given gradual onset and negative imaging. * Infection - Given lack of rash, meningismus, or fever; doubt meningitis. Similarly the history and exam are without evidence of acute otitis media, sinusitis, dental abscesses or clinically significant dental caries. * Mass - consider for mass effect given the likely colloid cyst at the foramen tomorrow with secondary obstruction leading to the lateral ventricle dilation. * Hypertensive encephalopathy - BP within the brain's autoregulatory zone. * Glaucoma or iritis - As the patient is without reported vision changes, eye pain, and an occular exam without increases in pain on pupillary constriction further evaluation was not pursued. * Idiopathic Intracranial Hypertension - unlikely given the lack of visual symptoms, short duration of symptoms, lack of worsening with valsalva, or more prominent morning symptoms. * Thrombosis - given the lack of identifiable risk factors (preceding facial infection, fever, and hypercoagulability) as well as an absence of deficits on exam doubt both cavernous and venous sinus thrombosis. * Temporal Arteritis - given lack of temporally localized headache, temporal tenderness or decreased temporal artery pulse, absent history of jaw claudication or vision changes; doubt. ED Course: 1 L NS, 10 mg Compazine, 25 mg diphenhydramine, 15 mg Toradol, and 1 g acetaminophen given for initial symptomatic treatment. 15:49 - Dr. Beckett, neurosurgeon production scheduler in [place], patient will need an endoscopic resection that is not available in [place], recommended transfer to [place] or [place]. 15:53 [facility] One Call. Dr. Mullins, neurosurgeon production scheduler. 16:15 Dr. Mullins (neurosurgery) and Dr. Gray (hospitalist). Disposition: patient transferred ground transport. Impression: headache, obstructive hydrocephalus. (please reference below for remainder of encounter information) Critical Care Time Organ system(s): DREDGE OR BARGE SHORE HAND Intervention: Assessment of the patient, interpretation of studies, communication related to patient care. Time: 45 minutes were spent directly related to patient care exclusive of separately billed procedures. headache Pain Score (Numeric/FACES): 8 - Related Data Allergies Allergy/AdvReac Type Severity Reaction Status Date / Time cefaclor [From Ceclor] Allergy Anaphylactic Verified 09/22/18 12:43 Shock Home Meds: Home Meds . [No Known Home Meds] 06/13/19 [History] Past Medical History HEENT History: Reports: None Cardiovascular History: Reports: None Respiratory History: Reports: None Gastrointestinal History: Reports: GERD Genitourinary History: Reports: None EXHIBITOR SALES History: Reports: Other EXHIBITOR SALES History: ovarian cysts Musculoskeletal History: Reports: Fracture Other Musculoskeletal History: hx of fx ankle Neurological History: Reports: None Psychiatric History: Reports: None Endocrine/Metabolic History: Reports: Obesity/BMI 30+ Hematologic History: Reports: None Immunologic History: Reports: None Oncologic (Cancer) History: Reports: None Dermatologic History: Reports: None - Infectious Disease History Infectious Disease History: Reports: Chicken Pox - Past Surgical History Head Surgeries/Procedures: Reports: None HEENT Surgical History: Reports: Other (See Below) Female Surgical History: Reports: Section Other Female Surgeries/Procedures: x3 Social & Family History - Family History Family Medical History: Noncontributory - Tobacco Use Smoking Status *Q: Never Smoker - Caffeine Use Caffeine Use: Reports: Coffee, Energy Drinks, Soda, Tea - Recreational Drug Use Recreational Drug Use: No ED ROS GENERAL - Review of Systems Review Of Systems: See Below ED EXAM, GENERAL - Physical Exam Exam: See Below Course - Vital Signs Last Recorded V/S: Last Vital Signs Temp Pulse 83 06/13/19 13:56 Resp 20 06/13/19 13:56 BP 152/85 H 06/13/19 13:56 Pulse Ox 100 06/13/19 13:56 - Orders/Labs/Meds Meds: Medications Discontinued Medications Generic Name Dose Route Start Last Admin Trade Name Freq PRN Reason Stop Dose Admin Acetaminophen 1,000 mg 06/13/19 14:37 06/13/19 15:06 Tylenol Extra Strength PO 06/13/19 14:38 1,000 mg ONETIME ONE Administration Diphenhydramine HCl 25 mg 06/13/19 14:37 06/13/19 15:02 Benadryl IVPUSH 06/13/19 14:38 25 mg ONETIME ONE Administration Prochlorperazine Edisylate 10 52 mls @ 150 mls/hr 06/13/19 14:37 06/13/19 15: 05 mg/ Sodium Chloride IV 06/13/19 14:57 150 mls/hr ONETIME ONE Administration Sodium Chloride 1,000 mls @ 1,000 mls/hr 06/13/19 14:37 06/13/19 15:06 Normal Saline IV 06/13/19 15:36 1,000 mls/hr .Bolus ONE Administration Ketorolac Tromethamine 15 mg 06/13/19 14:37 06/13/19 15:02 Toradol IVPUSH 06/13/19 14:38 15 mg ONETIME ONE Administration Departure - Departure Time of Disposition: 16:25 Disposition: DC/Tfer to Other 70 Clinical Impression: Obstructive hydrocephalus - Discharge Information Referrals: PCP,None [Primary Care Provider] - Sepsis Event Note - Evaluation Sepsis Screening Result: No Definite Risk - Focused Exam Vital Signs: Vital Signs Pulse Resp BP Pulse Ox 06/13/19 13:56 83 20 152/85 H 100 Date Exam was Performed: 06/13/19 Time Exam was Performed: 16:25
== END 2019-06-13 17:40 | disposition other institution (70) ==
LOC: MW.ED 13:09
DX: G91.1 Obstructive hydrocephalus (principal); E66.9 Obesity, unspecified; Z88.1 Allergy status to other antibiotic agents
CPT/HCPCS: 70450; 93005; 96365; 96375; 99291; A9270; J0780; J1200; J1885; J7030; J7050; 99285

== ENCOUNTER 2019-07-04 23:23 | Emergency (ER) | payer MEDICAID ==
[2019-07-05] MEDS ORDERED: Morphine 10 MG/ML Syringe IVPUSH ONE (00:50)
[2019-07-05] MEDS ORDERED: Ondansetron 4 MG/2 ML SDV IVPUSH ONE (00:50)
[2019-07-05 01:09] LABS: BLOOD UREA NITROGEN,BUN 19 mg/dL (7.0-18.0); CARBON DIOXIDE,CO2 30.6 mmol/L (21.0-32.0); CHLORIDE,CL 102 mmol/L (98-107); GLUCOSE RANDOM 90 mg/dL (74-106); POTASSIUM,K 3.9 mmol/L (3.5-5.1); SODIUM,NA 141 mmol/L (136-145)
--- NOTE | 2019-07-05 01:22 | CT ---
INDICATION: Headache, colloid cyst removal earlier this month. TECHNIQUE: CT head without contrast. COMPARISON: Head CT 06/13/2019 FINDINGS: Compared to the prior examination the patient is status post left frontal flako hole with some adjacent soft tissue swelling. There is a low-density tract from the flako hole extending to the level of the left lateral ventricle. Previously noted colloid cyst has been removed with interval decompression of the ventricles. There is a low density left subdural collection measuring 4 millimeters. There is [id number] subfalcine shift of 2 millimeters. Brainstem and cerebellum are unremarkable. Quintana-white differentiation is distinct. Mucous retention cyst right maxillary sinus. IMPRESSION: 1. Status post interval colloid cyst resection with postoperative left frontal gliosis and interval decompression of the ventricles. 2. Left subdural collection measuring 4 millimeters consistent with a postoperative hygroma or old subdural hemorrhage. Minimal [id number] subfalcine shift. No acute bleed seen. Please note that all CT scans at this facility use dose modulation, iterative reconstruction, and/or weight-based dosing when appropriate to reduce radiation dose to as low as reasonably achievable. Dictated by Armen Baez MD @ Jul 05 2019 1:16AM Signed by Dr. Armen Baez @ Jul 05 2019 1:21AM
--- NOTE | 2019-07-05 02:17 | EDM.PDOC ---
ED [facility] GENERAL MEDICAL PROBLEM - General Chief Complaint: Headache Stated Complaint: HEADACHE Time Seen by Provider: 07/05/19 01:40 Source of Information: Reports: Patient History Limitations: Reports: No Limitations - History of Present Illness INITIAL COMMENTS - FREE TEXT/NARRATIVE: Patient is a 33-year-old female with a past history of recent endoscopic removal of a colloid cyst. Patient states that she has had a headache for the past 2 days. Patient surgery was approximately 3 weeks ago. She was informed that she should go to the ER if she started experiencing worsening headache and neck pain. Patient states that she has both the symptoms and they have been unrelieved with [id number] ibuprofen and Tylenol. Patient denies any fevers, chills, vomiting. Patient does have associated nausea. Patient also reports associated weakness of her left lower extremity. Nothing makes his symptoms better or worse. Headaches are continuous. Moderate to severe in intensity. Pmhx: None Pshx: Per HPI Family Hx: noncontributory Smoking history? no Etoh use? none Drug use? none In addition to that documented in the HPI above, the additional ROS was obtained : Constitutional: Denies fevers or chills Eyes: Denies vision changes ENMT: Denies sore throat CV: Denies chest pain Resp: Denies SOB GI: Denies vomiting or diarrhea : Denies painful urination MSK: Denies recent trauma Skin: Denies new rashes Neuro: Denies new numbness or tingling or weakness Endocrine: Denies unexpected weight loss Heme: Denies bleeding disorders I have reviewed the triage vital signs Const: Well nourished, well developed, appears stated age Eyes: PERRL, no conjunctival injection HENT: NCAT, Neck supple without meningismus CV: RRR, Warm, well-perfused extremities RESP: CTAB, Unlabored respiratory effort GI: soft, non-tender, non-distended, no masses MSK: No gross deformities appreciated Skin: Warm, dry. No rashes Neuro: Alert, film archivist II-XII grossly intact. Sensation and motor function of extremities grossly intact. No weakness is noted on either lower or upper extremities Psych: Appropriate mood and affect Assessment and plan: Patient is 33-year-old female status post neurosurgical procedure completed at [facility]. Concerns for postsurgical complications are at the forefront given recent surgery. CT scan was performed to look for any complications related to the surgery and did not demonstrate any acute pathologic abnormalities. I did speak with Dr. Mullins who is on-call for neurosurgery with the [facility] group who reviewed the CT scans and did not see that the patient require transfer or admission to the hospital. He states as long as the patient's headache is controlled and she has no neurologic deficits that she can be discharged home. Patient feels better after pain medication and wished to go home. Patient has a follow-up appointment on Saturday with her surgeon Dr. Dockery. I gave her return precautions and she agrees with the plan. 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 DISHWASHER PREPARER History: ovarian cysts Musculoskeletal History: Reports: Fracture Other Musculoskeletal History: hx of fx ankle Neurological History: Reports: None Psychiatric History: Reports: Anxiety Endocrine/Metabolic History: Reports: Obesity/BMI 30+ Hematologic History: Reports: None Immunologic History: Reports: None Oncologic (Cancer) History: Reports: None Dermatologic History: Reports: None - Infectious Disease History Infectious Disease History: Reports: Chicken Pox - Past Surgical History Head Surgeries/Procedures: Reports: None GI Surgical History: Reports: None Female Surgical History: Reports: Section Other Female Surgeries/Procedures: x3 Neurological Surgical History: Reports: Other (See Below) Other Neurological Surgeries/Procedures: brain sx for removal of coloid cyst Musculoskeletal Surgical History: Reports: None Social & Family History - Family History Family Medical History: Noncontributory - Tobacco Use Smoking Status *Q: Never Smoker Second Hand Smoke Exposure: No - Caffeine Use Caffeine Use: Reports: Coffee, Soda - Recreational Drug Use Recreational Drug Use: No ED ROS GENERAL - Review of Systems Review Of Systems: See Below ED EXAM, NEURO - Physical Exam Exam: See Below *Q Meaningful Use (ADM) - VTE *Q VTE Criteria *Q: Not inpatient Course - Vital Signs Last Recorded V/S: Last Vital Signs Temp 35.8 C L 07/04/19 23:41 Pulse 67 07/05/19 02:27 Resp 16 07/05/19 02:27 BP 112/71 07/05/19 02:27 Pulse Ox 97 07/05/19 02:27 - Orders/Labs/Meds Labs: Laboratory Tests 07/05/19 07/05/19 Range/Units 00:30 00:30 WBC 14.02 H (4.0-11.0) K/uL RBC 4.47 (4.30-5.90) M/uL Hgb 13.9 (12.0-16.0) g/dL Hct 42.7 (36.0-46.0) % MCV 95.5 (80.0-98.0) fL MCH 31.1 (27.0-32.0) pg MCHC 32.6 (31.0-37.0) g/dL RDW Std Deviation 49.6 (28.0-62.0) fl RDW Coeff of Khang 14 (11.0-15.0) % Plt Count 349 (150-400) K/uL MPV 9.10 (7.40-12.00) fL Neut % (Auto) 69.3 (48.0-80.0) % Lymph % (Auto) 21.0 (16.0-40.0) % [place] % (Auto) 8.3 (0.0-15.0) % Eos % (Auto) 1.3 (0.0-7.0) % Baso % (Auto) 0.1 (0.0-1.5) % Neut # (Auto) 9.7 H (1.4-5.7) K/uL Lymph # (Auto) 2.9 H (0.6-2.4) K/uL [place] # (Auto) 1.2 H (0.0-0.8) K/uL Eos # (Auto) 0.2 (0.0-0.7) K/uL Baso # (Auto) 0.0 (0.0-0.1) K/uL Nucleated RBC % 0.0 /100WBC Nucleated RBCs # 0 K/uL Sodium 141 (136-145) mmol/L Potassium 3.9 (3.5-5.1) mmol/L Chloride 102 (98-107) mmol/L Carbon Dioxide 30.6 (21.0-32.0) mmol/L BUN 19 H (7.0-18.0) mg/dL Creatinine 0.7 (0.6-1.0) mg/dL Est Cr Clr Drug Dosing 96.33 mL/min Estimated GFR (MDRD) > 60.0 ml/min Glucose 90 (74-106) mg/dL Calcium 8.6 (8.5-10.1) mg/dL Total Bilirubin 0.3 (0.2-1.0) mg/dL AST 11 L (15-37) IU/L ALT 38 (14-63) IU/L Alkaline Phosphatase 100 (46-116) U/L Total Protein 6.4 (6.4-8.2) g/dL Albumin 3.3 L (3.4-5.0) g/dL Globulin 3.1 (2.6-4.0) g/dL Albumin/Globulin Ratio 1.1 (0.9-1.6) Meds: Medications Discontinued Medications Generic Name Dose Route Start Last Admin Trade Name Freq PRN Reason Stop Dose Admin Morphine Sulfate 6 mg 07/05/19 00:50 07/05/19 00:59 Morphine IVPUSH 07/05/19 00:51 6 mg ONETIME ONE Administration Ondansetron HCl 4 mg 07/05/19 00:50 07/05/19 00:57 Zofran IVPUSH 07/05/19 00:51 4 mg ONETIME ONE Administration Departure - Departure Time of Disposition: 02:17 Disposition: Home, Self-Care 01 Clinical Impression: Headache - Discharge Information Instructions: General Headache Without Cause, [id number] Referrals: Horacio Vera MD [Primary Care Provider] - Forms: ED Department Discharge Additional Instructions: The following information is given to patients seen in the emergency department who are being discharged to home. This information is to outline your options for follow-up care. We provide all patients seen in our emergency department with a follow-up referral. The need for follow-up, as well as the timing and circumstances, are variable depending upon the specifics of your emergency department visit. If you don't have a primary care physician on staff, we will provide you with a referral. We always advise you to contact your personal physician following an emergency department visit to inform them of the circumstance of the visit and for follow-up with them and/or the need for any referrals to a consulting specialist. The emergency department will also refer you to a specialist when appropriate. This referral assures that you have the opportunity for follow-up care with a specialist. All of these measure are taken in an effort to provide you with optimal care, which includes your follow-up. Under all circumstances we always encourage you to contact your private physician who remains a resource for coordinating your care. When calling for follow-up care, please make the office aware that this follow-up is from your recent emergency room visit. If for any reason you are refused follow-up, please contact the [facility] Emergency Department at and asked to speak to the emergency department charge nurse. Continue home meds as prescribed. Follow up with your neurologist as discussed. Sepsis Event Note - Evaluation Sepsis Screening Result: No Definite Risk - Focused Exam Vital Signs: Vital Signs Temp Pulse Resp BP Pulse Ox 07/05/19 02:27 67 16 112/71 97 07/04/19 23:41 35.8 C L 92 18 131/87 98 Date Exam was Performed: 07/05/19 Time Exam was Performed: 02:55
== END 2019-07-05 02:36 | disposition home or self-care (01) ==
LOC: MW.ED 23:23
DX: R51 Headache (principal); E66.9 Obesity, unspecified; Z88.1 Allergy status to other antibiotic agents; Z79.899 Other long term (current) drug therapy; Z68.37 Body mass index [BMI] 37.0-37.9, adult
CPT/HCPCS: 36415; 70450; 80053; 85025; 96374; 96375; 99284; J2270; J2405

== ENCOUNTER 2020-04-02 04:31 | Emergency (ER) | payer MEDICAID ==
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
[2020-04-02 05:50] LABS: BLOOD UREA NITROGEN,BUN 11 mg/dL (7.0-18.0); CARBON DIOXIDE,CO2 25.2 mmol/L (21.0-32.0); CHLORIDE,CL 102 mmol/L (98-107); GLUCOSE RANDOM 110 mg/dL (74-106); POTASSIUM,K 4.7 mmol/L (3.5-5.1); SODIUM,NA 138 mmol/L (136-145)
[2020-04-02] MEDS ORDERED: Albuterol/Ipratropium 3.0-0.5 MG/3 ML Neb Soln NEB ONE (05:51)
[2020-04-02] MEDS ORDERED: Albuterol 6.7 GM Inhaler INH ONE (06:09)
[2020-04-02] MEDS ORDERED: Albuterol HFA 18 Gm Inhaler ONE (06:27)
[2020-04-02] MEDS ORDERED: Albuterol HFA 18 Gm Inhaler INH STA (06:32)
== END 2020-04-02 06:35 | disposition home or self-care (01) ==
LOC: MW.ED 04:31
DX: T59.811A Toxic effect of smoke, accidental (unintentional), initial encounter (principal); Z88.1 Allergy status to other antibiotic agents; E66.9 Obesity, unspecified
CPT/HCPCS: 36415; 36600; 71045; 71045-26; 80053; 82375; 82803; 83605; 85025; 99283; 99284-25; J3535-GY; J7620-GY

== ENCOUNTER 2021-01-04 21:22 | Inpatient (IN) | payer MEDICAID ==
[2021-01-04] MEDS: Lactated Ringers 1,000 ML IV SCH ×2 (21:45→23:10)
[2021-01-04] MEDS ORDERED: fentaNYL 100 MCG/2 ML SDV ONE (22:55)
[2021-01-04] MEDS ORDERED: Morphine PF 10 MG/10 ML SDV ONE (22:55)
[2021-01-04] MEDS ORDERED: Oxytocin 10 Units/1 ML SDV ONE (22:56)
[2021-01-04] MEDS ORDERED: Ondansetron 4 MG/2 ML SDV ONE (22:56)
[2021-01-04] MEDS ORDERED: Ketorolac 30 MG/ML SDV ONE (22:56)
[2021-01-04] MEDS ORDERED: Sodium Chloride 0.9% 10 ML SDV IV PRN (23:04)
[2021-01-04] MEDS ORDERED: Citric Acid/Sodium Citrate Solution 30 ML Cup PO ONE (23:04)
[2021-01-04] MEDS ORDERED: Sodium Chloride 0.9% 10 ML Syringe FLUSH PRN (23:04)
[2021-01-04] MEDS ORDERED: Sodium Chloride 0.9% 2.5 ML Syringe FLUSH PRN (23:04)
[2021-01-04] MEDS ORDERED: CLINDAMYCIN PHOSPHATE IV ONE (23:11)
[2021-01-04] MEDS ORDERED: SODIUM CHLORIDE 0.9% IV ONE (23:11)
[2021-01-04] MEDS ORDERED: Oxytocin/0.9 % Sodium Chloride 30 UNIT/500 ML BAG IV SCH (23:15)
[2021-01-04] MEDS ORDERED: Octyl 2-Cyanoacrylate 1 Tube ONE (23:21)
[2021-01-04] MEDS ORDERED: Clindamycin Phosphate in D5W 900 MG in Premix Bag 1 BAG IV ONE ×2 (23:30)
--- NOTE | 2021-01-04 23:32 | PCM.LDHP ---
L&D History of Present Illness - General Date of Service: 01/04/21 Admit Problem/Dx: Patient Status Order with Admit Dx/Problem 01/04/21 21:24 Patient Status [ADT] Routine 01/04/21 23:05 Patient Status [ADT] Routine Admission Diagnosis/Problem Admission Diagnosis/Problem Source of Information: Patient History Limitations: Reports: No Limitations - History of Present Illness Introduction:: 35yo at 38w4d GA here with SROM, meconium-tinged fluid. Patient has a h/o of C-sectionx3 and scheduled for a repeat tmrw. She denies VB, or regular Ctx. Good FM. also complicated by GDM, on metformin. She is O+, abs neg, RI, RPR NR, HBsAg neg, HIV neg, GC/ Chlam neg, GBS neg. - Related Data Allergies/Adverse Reactions: Allergies Allergy/AdvReac Type Severity Reaction Status Date / Time cefaclor [From [facility]] Allergy Anaphylactic Verified 12/30/20 08:22 Shock Home Medications: Home Meds Aspirin [Adult Aspirin Regimen] 81 mg PO DAILY 12/30/20 [History] Cimetidine 20 mg PO DAILY 12/30/20 [History] Escitalopram Oxalate [Lexapro] 20 mg PO DAILY 12/30/20 [History] Pnv No.95/Ferrous Fum/Folic AC [ Vitamin Tablet] 1 tab PO DAILY 12/30/20 [History] metFORMIN HCl [Metformin HCl] 500 mg PO DAILY 12/30/20 [History] Past Medical History HEENT History: Reports: None Cardiovascular History: Reports: Other (See Below) Other Cardiovascular History: high BP after brain surgery, no problems since Respiratory History: Reports: None Gastrointestinal History: Reports: GERD Genitourinary History: Reports: None [employer]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: Musculoskeletal History: Reports: Fracture Other Musculoskeletal History: hx of fx ankle Neurological History: Reports: Other (See Below) Psychiatric History: Reports: Anxiety, Depression Endocrine/Metabolic History: Reports: Diabetes, Gestational, Obesity/BMI 30+ 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 Hematologic History: Reports: None Immunologic History: Reports: None Oncologic (Cancer) History: Reports: None Dermatologic History: Reports: None - Infectious Disease History Infectious Disease History: Reports: Chicken Pox - Past Surgical History Head Surgeries/Procedures: Reports: None HEENT Surgical History: Reports: None Cardiovascular Surgical History: Reports: None Respiratory Surgical History: Reports: None GI Surgical History: Reports: None Female Surgical History: Reports: Section Other Female Surgeries/Procedures: x3, diagnostic laparoscopy Endocrine Surgical History: Reports: None Neurological Surgical History: Reports: Other (See Below) Other Neurological Surgeries/Procedures: brain sx for removal of coloid cyst Musculoskeletal Surgical History: Reports: None Oncologic Surgical History: Reports: None Dermatological Surgical History: Reports: None Social & Family History - Family History Family Medical History: No Pertinent Family History - Tobacco Use Tobacco Use Status *Q: Never Tobacco User Second Hand Smoke Exposure: No - Caffeine Use Caffeine Use: Reports: Soda, Tea - Recreational Drug Use Recreational Drug Use: No H&P Review of Systems - Review of Systems: Review Of Systems: See Below General: Reports: No Symptoms HEENT: Reports: No Symptoms Pulmonary: Reports: No Symptoms Cardiovascular: Reports: No Symptoms Gastrointestinal: Reports: No Symptoms Genitourinary: Reports: No Symptoms Musculoskeletal: Reports: No Symptoms Skin: Reports: No Symptoms Psychiatric: Reports: No Symptoms Neurological: Reports: No Symptoms Hematologic/Lymphatic: Reports: No Symptoms Immunologic: Reports: No Symptoms L&D Exam - Exam Exam: See Below - Vital Signs Weight: 116.12 kg - OB Specific Contraction Intensity: Mild Movement: Active Heart Tones: Present Heart Rate (FHR) Variability: Moderate (6-25 bpm) Presentation: Vertex Estimated Weight: 7 - Exam General: Alert, Oriented Neck: Supple Lungs: Normal Respiratory Effort Cardiovascular: Regular Rate GI/Abdominal Exam: Soft, Non-Tender Extremities: Normal Inspection Psychiatric: Alert, Normal Affect, Normal Mood - Patient Data Lab Results Last 24 hrs: Laboratory Results - last 24 hr 01/04/21 01/04/21 01/04/21 Range/Units 21:40 22:45 23:15 WBC 11.65 H (4.0-11.0) K/uL RBC 4.54 (4.30-5.90) M/uL Hgb 13.8 (12.0-16.0) g/dL Hct 39.4 (36.0-46.0) % MCV 86.8 (80.0-98.0) fL MCH 30.4 (27.0-32.0) pg MCHC 35.0 (31.0-37.0) g/dL RDW Std Deviation 40.5 (28.0-62.0) fl RDW Coeff of Khang 13 (11.0-15.0) % Plt Count 222 (150-400) K/uL MPV 10.40 (7.40-12.00) fL Nucleated RBC % 0.0 /100WBC Nucleated RBCs # 0 K/uL POC Glucose 79 (70-99) mg/dL Membrane Rupture POSITIVE Result Diagrams: 01/04/21 22:45 - Problem List (1) Term SNOMED Code(s): 01364983 ICD Code: Z34.90 - ENCNTR FOR SUPRVSN OF NORMAL , UNSP, UNSP TRIMESTER Status: Acute Current Visit: Yes (2) History of section, low transverse SNOMED Code(s): 695463948 ICD Code: Z98.891 - HISTORY OF UTERINE SCAR FROM PREVIOUS SURGERY Status: Acute Current Visit: Yes Problem List Initiated/Reviewed/Updated: Yes Orders Last 24hrs: Active Orders 24 hr Category Date Time Status Patient Status [ADT] Routine ADT 01/04/21 23:05 Active Non Stress Test [RC] PER UNIT ROUTINE Care 01/04/21 21:24 Active Notify Provider Vital Signs [RC] PRN Care 01/04/21 23:08 Active Procedure Site Prep Instruct [RC] ASDIRECTED Care 01/04/21 23:05 Active Up ad [place] [RC] ASDIRECTED Care 01/04/21 21:24 Active Vaginal Exam [RC] Click to Edit Care 01/04/21 21:24 Active Verify Patient Consent Obtain [RC] ASDIRECTED Care 01/04/21 23:05 Active Vital Signs [RC] PER UNIT ROUTINE Care 01/04/21 21:24 Active RPR (SYPHILIS SERO) W/ RFLX [REF] Routine Lab 01/04/21 22:45 Received TYPE AND SCREEN [BBK] Routine Lab 01/04/21 22:45 Received Clindamycin Phosphate in D5W [Cleocin in D5W 900 MG/50 Med 01/04/21 23:30 Active ML] 900 mg Premix Bag 1 bag IV NOW Lactated Ringers [Ringers, Lactated] 1,000 ml Med 01/04/21 23:15 Active IV BOLUS Oxytocin/0.9 % Sodium Chloride [Oxytocin 30 Unit in NS Med 01/04/21 23:15 Active 0.9% 500 ML Premix] 30 unit in 500 ml IV TITRATE Sodium Chloride 0.9% [Normal Saline] Med 01/04/21 23:04 Active 10 ml IV ASDIRECTED PRN Sodium Chloride 0.9% [Saline Flush] Med 01/04/21 23:04 Active 10 ml FLUSH ASDIRECTED PRN Sodium Chloride 0.9% [Saline Flush] Med 01/04/21 23:04 Active 2.5 ml FLUSH ASDIRECTED PRN Peripheral IV Insertion Adult [OM.PC] Routine Oth 01/04/21 23:05 Ordered Schedule Procedure [COMM] Per Unit Routine Oth 01/04/21 23:05 Ordered Resuscitation Status Routine Resus Stat 01/04/21 21:24 Ordered Medication Orders Lactated Ringer's (Ringers, Lactated) 1,000 mls @ 500 mls/hr IV BOLUS LEEANNE Last Admin: 01/04/21 23:10 Dose: 999 mls/hr Documented by: Infusion: 01/04/21 23:10 Dose: 999 mls/hr Documented by: Admin: 01/04/21 21:45 Dose: 999 mls/hr Documented by: KAITLYNN Oxytocin/Sodium Chloride (Oxytocin 30 Unit In Ns 0.9% 500 Ml Premix) 30 unit in 500 mls @ 250 mls/hr IV TITRATE LEEANNE Clindamycin Phosphate 900 mg/ (Premix) 50 mls @ 100 mls/hr IV NOW ONE Stop: 01/04/21 23:59 Sodium Chloride (Sodium Chloride 0.9% 10 Ml Syringe) 10 ml FLUSH ASDIRECTED PRN PRN Reason: Keep Vein Open Sodium Chloride (Sodium Chloride 0.9% 2.5 Ml Syringe) 2.5 ml FLUSH ASDIRECTED PRN PRN Reason: Keep Vein Open Sodium Chloride (Sodium Chloride 0.9% 10 Ml Sdv) 10 ml IV ASDIRECTED PRN PRN Reason: IV Use Assessment/Plan Comment:: 35yo at 38w4d GA here with SROM, meconium-tinged fluid. Reactive strip. Patient with h/o c-sectionx3. Will proceed with today. Patient agreeable. Consent signed
[2021-01-05] MEDS ORDERED: fentaNYL 100 MCG/2 ML SDV ONE (00:23)
[2021-01-05] MEDS ORDERED: Oxytocin 10 Units/1 ML SDV ONE (01:18)
[2021-01-05] MEDS ORDERED: Ondansetron 4 MG/2 ML SDV ONE (01:38)
[2021-01-05] MEDS ORDERED: Tranexamic Acid 1,000 MG in Sodium Chloride 0.9% 100 ML IV PRN (01:59)
[2021-01-05] MEDS ORDERED: Acetaminophen/oxyCODONE 325-5 MG Tab PO PRN (01:59)
[2021-01-05] MEDS ORDERED: Lanolin 100% Cream 7 GM Tube TOP PRN (01:59)
[2021-01-05] MEDS ORDERED: Ondansetron 4 MG/2 ML SDV IVPUSH PRN (01:59)
[2021-01-05] MEDS ORDERED: diphenhydrAMINE 50 MG/ML SDV IVPUSH PRN (01:59)
[2021-01-05] MEDS ORDERED: Methylergonovine 0.2 MG/1 ML Amp IM PRN (01:59)
[2021-01-05] MEDS ORDERED: Bisacodyl 10 MG Supp RECTAL PRN (01:59)
[2021-01-05] MEDS ORDERED: Misoprostol 200 MCG Tab RECTAL PRN (01:59)
[2021-01-05] MEDS ORDERED: Oxytocin 10 Units/1 ML SDV IM PRN (01:59)
[2021-01-05] MEDS ORDERED: Lactated Ringers 1,000 ML IV SCH (02:00)
[2021-01-05] MEDS ORDERED: Oxytocin/Lactated Ringers 30 UNIT/500 ML BAG IV SCH (02:00)
--- NOTE | 2021-01-05 02:10 | PCM.DEL ---
L & D Note - General Info Date of Service: 01/05/21 Mother's Due Date: 01/14/21 - Delivery Note Labor: Spontaneous Delivery Outcome: Livebirth Infant Delivery Method: Repeat Presentation: Vertex Nuchal Cord: None Anesthesia Type: Spinal Amniotic Fluid Description: Meconium Stained Placenta: Intact Cord: 3 Vessels Estimated Blood Loss: 600 Resuscitation Needed: No : Stimulated Score 1 min: 9 Score 5 min: 9 Delivery Comments (Free Text/Narrative):: 35yo G4 now P4004 s/p uncomplicated RLTCS at 38w4d GA after patient presented with SROM, meconium-tinged fluid. Delivery details: BG 1nel5cl Apgars 12/15 EBL: 600cc - General Info Date of Service: 01/05/21 Admission Dx/Problem (Free Text): Patient Status Order with Admit Dx/Problem 01/04/21 21:24 Patient Status [ADT] Routine 01/04/21 23:05 Patient Status [ADT] Routine Admission Diagnosis/Problem Admission Diagnosis/Problem Subjective Update: Mom and baby are doing well Functional Status: Reports: Pain Controlled - Review of Systems General: Reports: No Symptoms - Patient Data Weight - Most Recent: 116.12 kg Lab Results Last 24 Hours: Laboratory Results - last 24 hr 01/04/21 01/04/21 01/04/21 Range/Units 21:40 22:45 22:45 WBC 11.65 H (4.0-11.0) K/uL RBC 4.54 (4.30-5.90) M/uL Hgb 13.8 (12.0-16.0) g/dL Hct 39.4 (36.0-46.0) % MCV 86.8 (80.0-98.0) fL MCH 30.4 (27.0-32.0) pg MCHC 35.0 (31.0-37.0) g/dL RDW Std Deviation 40.5 (28.0-62.0) fl RDW Coeff of Khang 13 (11.0-15.0) % Plt Count 222 (150-400) K/uL MPV 10.40 (7.40-12.00) fL Nucleated RBC % 0.0 /100WBC Nucleated RBCs # 0 K/uL POC Glucose (70-99) mg/dL Membrane Rupture POSITIVE Blood Type O POSITIVE Antibody Screen NEGATIVE 01/04/21 Range/Units 23:15 WBC (4.0-11.0) K/uL RBC (4.30-5.90) M/uL Hgb (12.0-16.0) g/dL Hct (36.0-46.0) % MCV (80.0-98.0) fL MCH (27.0-32.0) pg MCHC (31.0-37.0) g/dL RDW Std Deviation (28.0-62.0) fl RDW Coeff of Khang (11.0-15.0) % Plt Count (150-400) K/uL MPV (7.40-12.00) fL Nucleated RBC % /100WBC Nucleated RBCs # K/uL POC Glucose 79 (70-99) mg/dL Membrane Rupture Blood Type Antibody Screen Med Orders - Current: Current Medications Lactated Ringer's (Ringers, Lactated) 1,000 mls @ 500 mls/hr IV BOLUS LEEANNE Last Admin: 01/04/21 23:10 Dose: 999 mls/hr Documented by: Oxytocin/Sodium Chloride (Oxytocin 30 Unit In Ns 0.9% 500 Ml Premix) 30 unit in 500 mls @ 250 mls/hr IV TITRATE LEEANNE Sodium Chloride (Sodium Chloride 0.9% 10 Ml Syringe) 10 ml FLUSH ASDIRECTED PRN PRN Reason: Keep Vein Open Sodium Chloride (Sodium Chloride 0.9% 2.5 Ml Syringe) 2.5 ml FLUSH ASDIRECTED PRN PRN Reason: Keep Vein Open Sodium Chloride (Sodium Chloride 0.9% 10 Ml Sdv) 10 ml IV ASDIRECTED PRN PRN Reason: IV Use Discontinued Medications Citric Acid/Sodium Citrate (Citric Acid/Sodium Citrate Solution 30 Ml Cup) 30 ml PO ONETIME ONE Stop: 01/04/21 23:05 Fentanyl (Fentanyl 100 Mcg/2 Ml Sdv) Confirm Administered Dose 100 mcg .ROUTE .STK-MED ONE Stop: 01/04/21 22:56 Fentanyl (Fentanyl 100 Mcg/2 Ml Sdv) Confirm Administered Dose 100 mcg .ROUTE .STK-MED ONE Stop: 01/05/21 00:24 Clindamycin Phosphate 900 mg/ (Premix) 50 mls @ 100 mls/hr IV NOW ONE Stop: 01/04/21 23:59 Ketorolac Tromethamine (Ketorolac 30 Mg/Ml Sdv) Confirm Administered Dose 30 mg .ROUTE .STK-MED ONE Stop: 01/04/21 22:57 Miscellaneous Medication (Phenylephrine Hcl In 0.9% Nacl 1 Mg/10 Ml Syringe) Confirm Administered Dose 1 mg .ROUTE .STK-MED ONE Stop: 01/04/21 22:57 Miscellaneous Medication (Phenylephrine Hcl In 0.9% Nacl 1 Mg/10 Ml Syringe) Confirm Administered Dose 1 mg .ROUTE .STK-MED ONE Stop: 01/05/21 01:19 Morphine Sulfate (Morphine Pf 10 Mg/10 Ml Sdv) Confirm Administered Dose 10 mg .ROUTE .STK-MED ONE Stop: 01/04/21 22:56 Octyl Cyanoacrylate (Octyl 2-Cyanoacrylate 1 Tube) Confirm Administered Dose 1 applic .ROUTE .STK-MED ONE Stop: 01/04/21 23:22 Ondansetron HCl (Ondansetron 4 Mg/2 Ml Sdv) Confirm Administered Dose 4 mg .ROUTE .STK-MED ONE Stop: 01/04/21 22:57 Ondansetron HCl (Ondansetron 4 Mg/2 Ml Sdv) Confirm Administered Dose 4 mg .ROUTE .STK-MED ONE Stop: 01/05/21 01:39 Oxytocin (Oxytocin 10 Units/1 Ml Sdv) Confirm Administered Dose 30 unit .ROUTE .STK-MED ONE Stop: 01/04/21 22:57 Oxytocin (Oxytocin 10 Units/1 Ml Sdv) Confirm Administered Dose 40 unit .ROUTE .STK-MED ONE Stop: 01/05/21 01:19 - Exam General: Alert, Oriented, No Acute Distress Lungs: Normal Respiratory Effort Cardiovascular: Regular Rate Psy/Mental Status: Alert, Normal Affect, Normal Mood - Problem List & Annotations (1) Term SNOMED Code(s): 77603407 Code(s): Z34.90 - ENCNTR FOR SUPRVSN OF NORMAL , UNSP, UNSP TRIMESTER Status: Acute Current Visit: Yes (2) History of section, low transverse SNOMED Code(s): 236252637 Code(s): Z98.891 - HISTORY OF UTERINE SCAR FROM PREVIOUS SURGERY Status: Acute Current Visit: Yes - Problem List Review Problem List Initiated/Reviewed/Updated: Yes - My Orders Last 24 Hours: My Active Orders 01/05/21 01:59 Patient Status [ADT] Routine Ambulate [RC] PER UNIT ROUTINE Communication Order [RC] PER UNIT ROUTINE Communication Order [RC] PER UNIT ROUTINE Communication Order [RC] Per Unit Routine May Shower [RC] ASDIRECTED Notify Provider Intake and Out [RC] ASDIRECTED Notify Provider Vital Signs [RC] ASDIRECTED RT Incentive Spirometry [RC] Q2HWA Vital Signs [RC] PER UNIT ROUTINE Acetaminophen/oxyCODONE [Percocet 325-5 MG] 1 tab PO Q4H PRN Acetaminophen/oxyCODONE [Percocet 325-5 MG] 2 tab PO Q4H PRN Ibuprofen [Motrin] 800 mg PO Q8H PRN Lanolin [Lansinoh HPA] See Dose Instructions TOP ASDIRECTED PRN Methylergonovine [Methergine] 0.2 mg IM ONETIME PRN Ondansetron [Zofran] 4 mg IVPUSH Q4H PRN Oxytocin [Pitocin] 10 unit IM ASDIRECTED PRN Tranexamic Acid [Cyklokapron] 1,000 mg Sodium Chloride 0.9% [Normal Saline] 100 ml IV ONETIME bisacodyL [Dulcolax] 10 mg RECTAL ONETIME PRN diphenhydrAMINE [Benadryl] 25 mg IVPUSH Q6H PRN miSOPROStoL [Cytotec] 1,000 mcg RECTAL ONETIME PRN Assess Lochia [WOMSER] Per Unit Routine Assess Uterine Involution [WOMSER] Per Unit Routine Breast Pump [WOMSER] Per Unit Routine Peripheral IV Discontinue [OM.PC] Routine Sequential Compression Device [OM.PC] Per Unit Routine 01/05/21 02:00 Antiembolic Devices [RC] PER UNIT ROUTINE Ketorolac [Toradol] 30 mg IVPUSH Q6H Lactated Ringers @ 125 MLS/HR(1000ml) Lactated Ringers [Ringers, Lactated] 1,000 ml IV ASDIRECTED Oxytocin/Lactated Ringers [Pitocin in LR 30 Units/500 ML] 30 unit in 500 ml IV TITRATE 01/05/21 09:00 Docusate Sodium [Colace] 100 mg PO BID 01/06/21 05:11 HEMOGLOBIN/HEMATOCRIT,HH [HEME] Timed - Plan Plan:: 35yo G4 now P4004 s/p uncomplicated RLTCS at 38w4d GA after patient presented with SROM, meconium-tinged fluid. P: Routine care Fasting BG in the morning
--- NOTE | 2021-01-05 02:14 | PCM.POSTAN ---
POST ANESTHESIA ASSESSMENT - MENTAL STATUS Mental Status: Alert, Oriented - RESPIRATORY Respiratory Status: Respiratory Rate WNL, Airway Patent, O2 Saturation Stable - CARDIOVASCULAR CV Status: Pulse Rate WNL, Blood Pressure Stable - GASTROINTESTINAL GI Status: No Symptoms - PAIN Pain Score: 0 - POST OP HYDRATION Hydration Status: Adequate & Stable
[2021-01-05] MEDS: Ketorolac 30 MG/ML SDV IVPUSH SCH ×4 (03:16→21:20)
[2021-01-05] MEDS: Acetaminophen/oxyCODONE 325-5 MG Tab PO PRN ×2 (09:29→17:08)
[2021-01-05] MEDS: Docusate Sodium 100 MG Cap PO SCH ×2 (09:31→21:20)
[2021-01-06] MEDS: Ketorolac 30 MG/ML SDV IVPUSH SCH (03:15)
[2021-01-06] MEDS ORDERED: Ibuprofen 800 MG Tab PO PRN (08:00)
[2021-01-06] MEDS: Docusate Sodium 100 MG Cap PO SCH (09:04)
--- NOTE | 2021-01-06 10:05 | PCM.PNPP ---
- General Info Date of Service: 01/06/21 Admission Dx/Problem (Free Text): Patient Status Order with Admit Dx/Problem 01/04/21 21:24 Patient Status [ADT] Routine 01/04/21 23:05 Patient Status [ADT] Routine Admission Diagnosis/Problem Admission Diagnosis/Problem Subjective Update: Halie is a 35 yo current PPD1 S/P uncomplicated repeat LTCS to term follow SROM at home. O pos, RI, GBS neg. Appropriate adrianna-operative antibiotics administered. Patient has no complaints or concerns at this time. Patient is well, resting comfortably in bed with in latched to right breast. Patient reports she is eating, voiding, ambulating independently and without difficulty. Patient denies any problems or concerns at this time except moderate intermittent uterine cramping and incision pain relieved with Perocet and Ibuprofen. Patient reports small vaginal bleeding with no clots. Patient verbalizes her readiness to be discharged home today. Low transverse incision MARLENY dressing clean, dry, intact. Functional Status: Reports: Pain Controlled, Tolerating Diet, Ambulating, Urinating - Review of Systems General: Reports: No Symptoms HEENT: Reports: No Symptoms Pulmonary: Reports: No Symptoms Cardiovascular: Reports: No Symptoms Gastrointestinal: Reports: No Symptoms Genitourinary: Reports: No Symptoms Musculoskeletal: Reports: No Symptoms Skin: Reports: No Symptoms Neurological: Reports: No Symptoms Psychiatric: Reports: No Symptoms - General Info Date of Service: 01/06/21 - Patient Data Vital Signs - Most Recent: Last Vital Signs Temp 97.4 F 01/06/21 07:40 Pulse 86 01/06/21 07:40 Resp 20 01/06/21 07:40 BP 124/85 01/06/21 08:20 Pulse Ox 98 01/06/21 07:40 Weight - Most Recent: 256 lb I&O - Last 24 Hours: Intake & Output 01/05/21 01/06/21 01/06/21 22:59 06:59 14:59 Output Total 200 Balance -200 Lab Results - Last 24 Hours: Laboratory Results - last 24 hr 01/06/21 Range/Units 06:12 Hgb 11.2 L (12.0-16.0) g/dL Hct 32.8 L (36.0-46.0) % Med Orders - Current: Current Medications Bisacodyl (Bisacodyl 10 Mg Supp) 10 mg RECTAL ONETIME PRN PRN Reason: Constipation Diphenhydramine HCl (Diphenhydramine 50 Mg/Ml Sdv) 25 mg IVPUSH Q6H PRN PRN Reason: Itching or Nausea Last Admin: 01/05/21 08:00 Dose: 25 mg Documented by: Docusate Sodium (Docusate Sodium 100 Mg Cap) 100 mg PO BID LEEANNE Last Admin: 01/06/21 09:04 Dose: 100 mg Documented by: Emollient Ointment (Lanolin 100% Cream 7 Gm Tube) 0 gm TOP ASDIRECTED PRN PRN Reason: Sore Nipples Lactated Ringer's (Ringers, Lactated) 1,000 mls @ 500 mls/hr IV BOLUS [facility] Last Admin: 01/04/21 23:10 Dose: 999 mls/hr Documented by: Oxytocin/Sodium Chloride (Oxytocin 30 Unit In Ns 0.9% 500 Ml Premix) 30 unit in 500 mls @ 250 mls/hr IV TITRATE LEEANNE Lactated Ringer's (Ringers, Lactated) 1,000 mls @ 125 mls/hr IV ASDIRECTED [facility] Last Infusion: 01/05/21 12:49 Dose: Infused Documented by: Oxytocin/Lactated Ringer's (Pitocin In Lr 30 Units/500 Ml) 30 unit in 500 mls @ 2 mls/hr IV TITRATE [facility]; Protocol Tranexamic Acid 1,000 mg/ (Sodium Chloride) 110 mls @ 660 mls/hr IV ONETIME PRN PRN Reason: Bleeding Ibuprofen (Ibuprofen 800 Mg Tab) 800 mg PO Q8H PRN PRN Reason: Cramping Last Admin: 01/06/21 09:04 Dose: 800 mg Documented by: Methylergonovine Maleate (Methylergonovine 0.2 Mg/1 Ml Amp) 0.2 mg IM ONETIME PRN PRN Reason: Excessive Vaginal Bleeding Misoprostol (Misoprostol 200 Mcg Tab) 1,000 mcg RECTAL ONETIME PRN PRN Reason: excessive bleeding Ondansetron HCl (Ondansetron 4 Mg/2 Ml Sdv) 4 mg IVPUSH Q4H PRN PRN Reason: Nausea/Vomiting Oxycodone/Acetaminophen (Acetaminophen/Oxycodone 325-5 Mg Tab) 1 tab PO Q4H PRN PRN Reason: Pain (severe 7-10) Oxycodone/Acetaminophen (Acetaminophen/Oxycodone 325-5 Mg Tab) 2 tab PO Q4H PRN PRN Reason: Pain (severe 7-10) Last Admin: 01/05/21 17:08 Dose: 2 tab Documented by: Oxytocin (Oxytocin 10 Units/1 Ml Sdv) 10 unit IM ASDIRECTED PRN PRN Reason: Excessive Vaginal Bleeding Sodium Chloride (Sodium Chloride 0.9% 10 Ml Syringe) 10 ml FLUSH ASDIRECTED PRN PRN Reason: Keep Vein Open Sodium Chloride (Sodium Chloride 0.9% 2.5 Ml Syringe) 2.5 ml FLUSH ASDIRECTED PRN PRN Reason: Keep Vein Open Sodium Chloride (Sodium Chloride 0.9% 10 Ml Sdv) 10 ml IV ASDIRECTED PRN PRN Reason: IV Use Discontinued Medications Citric Acid/Sodium Citrate (Citric Acid/Sodium Citrate Solution 30 Ml Cup) 30 ml PO ONETIME ONE Stop: 01/04/21 23:05 Last Admin: 01/05/21 12:48 Dose: Not Given Documented by: Fentanyl (Fentanyl 100 Mcg/2 Ml Sdv) Confirm Administered Dose 100 mcg .ROUTE .STK-MED ONE Stop: 01/04/21 22:56 Fentanyl (Fentanyl 100 Mcg/2 Ml Sdv) Confirm Administered Dose 100 mcg .ROUTE .S TK-MED ONE Stop: 01/05/21 00:24 Clindamycin Phosphate 900 mg/ (Premix) 50 mls @ 100 mls/hr IV NOW ONE Stop: 01/04/21 23:59 Last Admin: 01/05/21 07:29 Dose: Not Given Documented by: Ketorolac Tromethamine (Ketorolac 30 Mg/Ml Sdv) Confirm Administered Dose 30 mg .ROUTE .STK-MED ONE Stop: 01/04/21 22:57 Ketorolac Tromethamine (Ketorolac 30 Mg/Ml Sdv) 30 mg IVPUSH Q6H LEEANNE Stop: 01/06/21 02:01 Last Admin: 01/06/21 03:15 Dose: 30 mg Documented by: Miscellaneous Medication (Phenylephrine Hcl In 0.9% Nacl 1 Mg/10 Ml Syringe) Confirm Administered Dose 1 mg .ROUTE .STK-MED ONE Stop: 01/04/21 22:57 Miscellaneous Medication (Phenylephrine Hcl In 0.9% Nacl 1 Mg/10 Ml Syringe) Confirm Administered Dose 1 mg .ROUTE .STK-MED ONE Stop: 01/05/21 01:19 Morphine Sulfate (Morphine Pf 10 Mg/10 Ml Sdv) Confirm Administered Dose 10 mg .ROUTE .STK-MED ONE Stop: 01/04/21 22:56 Octyl Cyanoacrylate (Octyl 2-Cyanoacrylate 1 Tube) Confirm Administered Dose 1 applic .ROUTE .STK-MED ONE Stop: 01/04/21 23:22 Last Admin: 01/05/21 12:48 Dose: Not Given Documented by: Ondansetron HCl (Ondansetron 4 Mg/2 Ml Sdv) Confirm Administered Dose 4 mg .ROUTE .STK-MED ONE Stop: 01/04/21 22:57 Ondansetron HCl (Ondansetron 4 Mg/2 Ml Sdv) Confirm Administered Dose 4 mg .ROUTE .STK-MED ONE Stop: 01/05/21 01:39 Oxytocin (Oxytocin 10 Units/1 Ml Sdv) Confirm Administered Dose 30 unit .ROUTE .STK-MED ONE Stop: 01/04/21 22:57 Oxytocin (Oxytocin 10 Units/1 Ml Sdv) Confirm Administered Dose 40 unit .ROUTE .STK-MED ONE Stop: 01/05/21 01:19 - Infant Interaction Infant Disposition, : [place] in Room with Family Interaction: Holding Infant Feeding: Breastfed ; Nursed Well, Continues to Breastfeed, Encouraged to Breastfeed Support Person: Significant Other - Recovery Exam Fundal Tone: Firm Fundal Level: 2 Fingerbreadths Below Umbilicus Fundal Placement: Midline Lochia Amount: Scant Lochia Color: Rubra/Red Perineum Description: Intact, Minimal Bruising/Swelling Episiotomy/Laceration: None Bladder Status: Voiding Urinary Elimination: Voided - Exam General: Alert, Oriented, Cooperative, No Acute Distress HEENT: Pupils Equal, Mucous Membr. Moist/Fertile Neck: Supple Lungs: Clear to Auscultation, Normal Respiratory Effort Cardiovascular: Regular Rate, Regular Rhythm GI/Abdominal Exam: Normal Bowel Sounds, Soft, Non-Tender, No Organomegaly, No Distention Extremities: Normal Inspection, Normal Range of Motion, Non-Tender, No Pedal Edema, Normal Capillary Refill Skin: Warm, Dry, Intact Wound/Incisions: Dressing Dry and Intact, No Drainage Neurological: No New Focal Deficit Psy/Mental Status: Alert, Normal Affect, Normal Mood - Problem List & Annotations (1) Status post repeat low transverse section SNOMED Code(s): 583735922, 70848136, 154879453, 805277688, 073238258 Code(s): Z98.891 - HISTORY OF UTERINE SCAR FROM PREVIOUS SURGERY Status: Acute Priority: High Current Visit: Yes (2) Lactating mother SNOMED Code(s): 571930063, 424288840 Code(s): Z39.1 - ENCOUNTER FOR CARE AND EXAMINATION OF LACTATING MOTHER Status: Acute Priority: High Current Visit: Yes (3) GDM (gestational diabetes mellitus) SNOMED Code(s): 66775185 Code(s): O24.419 - GESTATIONAL DIABETES MELLITUS IN , UNSP CONTROL Status: Acute Priority: High Current Visit: Yes - Problem List Review Problem List Initiated/Reviewed/Updated: Yes - Plan Plan:: Plan to continue inpatient course. Hemodynamically stable, afebrile. Hemoglobin 11.2, F/U as indicated. Continue PO analgesia as ordered. Continue EBFing, eating, voiding, ambulating independently. Fasting FSBSs in am daily until discharge. Plan to D/C today pending discharge and pain control. Dr. Tena notified and agreeable with POC.
--- NOTE | 2021-01-06 10:09 | PCM.DCSUM1 ---
Discharge Summary - Hospital Course Diagnosis: Stroke: No - Discharge Data Discharge Date: 01/06/21 Discharge Disposition: Home, Self-Care 01 Condition: Good - Referral to Home Health Primary Care Physician: PCP None - Discharge Diagnosis/Problem(s) (1) Status post repeat low transverse section SNOMED Code(s): 442018582, [id number], [id number], [id number], [id number] ICD Code: Z98.891 - HISTORY OF UTERINE SCAR FROM PREVIOUS SURGERY Status: Acute Priority: High Current Visit: Yes (2) Lactating mother SNOMED Code(s): 447302144, 051845816 ICD Code: Z39.1 - ENCOUNTER FOR CARE AND EXAMINATION OF LACTATING MOTHER Status: Acute Priority: High Current Visit: Yes (3) GDM (gestational diabetes mellitus) SNOMED Code(s): 47476562 ICD Code: O24.419 - GESTATIONAL DIABETES MELLITUS IN , UNSP CONTROL Status: Acute Priority: High Current Visit: Yes - Patient Instructions Diet: Usual Diet as Tolerated, Regular Diet as Tolerated, Drink 8-10+ Glasses/Day Activity: As Tolerated, No Lifting Over 20 Pounds, No Strenuous Activities, Rest and Relax Today Driving: May Drive Today Showering/Bathing: May Shower Wound/Incision Care: Keep Operative Site/Wound Site Clean and Dry, Do NOT Change Dressing Notify Provider of: Fever, Increased Pain, Swelling and Redness, Drainage, Nausea and/or Vomiting - Discharge Plan *PRESCRIPTION DRUG MONITORING PROGRAM REVIEWED*: No *COPY OF PRESCRIPTION DRUG MONITORING REPORT IN PATIENT LONNIE: No Prescriptions/Med Rec: Ibuprofen [Motrin] 800 mg PO Q8H PRN #30 tablet PRN Reason: Cramping Home Medications: Home Meds Escitalopram Oxalate [Lexapro] 20 mg PO DAILY 12/30/20 [History] Pnv No.95/Ferrous Fum/Folic AC [ Vitamin Tablet] 1 tab PO DAILY 12/30/20 [History] Ibuprofen [Motrin] 800 mg PO Q8H PRN #30 tablet 01/06/21 [Rx] Oxygen Therapy Mode: Room Air Referrals: Brett Tena MD [Physician] - 01/13/21 4:00 pm (You may bring your with to your appointment. Masks are required. Bring ID and insurance cards.) - Discharge Summary/Plan Comment DC Time >30 min.: Yes Total # of Minutes for Discharge Time: SDF Discharge Summary/Plan Comment: Hemodynamically stable, afebrile. Independent with ADLs, pain well controlled. Ibuprofen prescription sent to pharmacy. Perocet prescription written to be given to patient prior to discharge. Warning S/Ss, when to call for help discussed, no questions or concerns. F/U in office in 1 week for incision check and dressing removal. RTO in 6 weeks for visit or sooner if problem arise. - General Info Date of Service: 01/06/21 Admission Dx/Problem (Free Text: Patient Status Order with Admit Dx/Problem 01/04/21 21:24 Patient Status [ADT] Routine 01/04/21 23:05 Patient Status [ADT] Routine Admission Diagnosis/Problem Admission Diagnosis/Problem Subjective Update: Halie is a 35 yo current PPD1 S/P uncomplicated repeat LTCS to term follow SROM at home. O pos, RI, GBS neg. Appropriate adrianna-operative antibiotics administered. Patient has no complaints or concerns at this time. Patient is well, resting comfortably in bed with in latched to right breast. Patient reports she is eating, voiding, ambulating independently and without difficulty. Patient denies any problems or concerns at this time except moderate intermittent uterine cramping and incision pain relieved with Perocet and Ibuprofen. Patient reports small vaginal bleeding with no clots. Patient verbalizes her readiness to be discharged home today. Low transverse incision MARLENY dressing clean, dry, intact. Functional Status: Reports: Pain Controlled, Tolerating Diet, Ambulating, Urinating - Review of Systems General: Reports: No Symptoms HEENT: Reports: No Symptoms Pulmonary: Reports: No Symptoms Cardiovascular: Reports: No Symptoms Gastrointestinal: Reports: No Symptoms Genitourinary: Reports: No Symptoms Musculoskeletal: Reports: No Symptoms Skin: Reports: No Symptoms Neurological: Reports: No Symptoms Psychiatric: Reports: No Symptoms - Patient Data Vitals - Most Recent: Last Vital Signs Temp 97.4 F 01/06/21 07:40 Pulse 86 01/06/21 07:40 Resp 20 01/06/21 07:40 BP 124/85 01/06/21 08:20 Pulse Ox 98 01/06/21 07:40 Weight - Most Recent: 256 lb I&O - Last 24 hours: Intake & Output 01/05/21 01/06/21 01/06/21 22:59 06:59 14:59 Output Total 200 Balance -200 Lab Results - Last 24 hrs: Laboratory Results - last 24 hr 01/06/21 Range/Units 06:12 Hgb 11.2 L (12.0-16.0) g/dL Hct 32.8 L (36.0-46.0) % Med Orders - Current: Current Medications Bisacodyl (Bisacodyl 10 Mg Supp) 10 mg RECTAL ONETIME PRN PRN Reason: Constipation Diphenhydramine HCl (Diphenhydramine 50 Mg/Ml Sdv) 25 mg IVPUSH Q6H PRN PRN Reason: Itching or Nausea Last Admin: 01/05/21 08:00 Dose: 25 mg Documented by: Docusate Sodium (Docusate Sodium 100 Mg Cap) 100 mg PO BID LEEANNE Last Admin: 01/06/21 09:04 Dose: 100 mg Documented by: Emollient Ointment (Lanolin 100% Cream 7 Gm Tube) 0 gm TOP ASDIRECTED PRN PRN Reason: Sore Nipples Lactated Ringer's (Ringers, Lactated) 1,000 mls @ 500 mls/hr IV BOLUS LEEANNE Last Admin: 01/04/21 23:10 Dose: 999 mls/hr Documented by: Oxytocin/Sodium Chloride (Oxytocin 30 Unit In Ns 0.9% 500 Ml Premix) 30 unit in 500 mls @ 250 mls/hr IV TITRATE LEEANNE Lactated Ringer's (Ringers, Lactated) 1,000 mls @ 125 mls/hr IV ASDIRECTED LEEANNE Last Infusion: 01/05/21 12:49 Dose: Infused Documented by: Oxytocin/Lactated Ringer's (Pitocin In Lr 30 Units/500 Ml) 30 unit in 500 mls @ 2 mls/hr IV TITRATE LEEANNE; Protocol Tranexamic Acid 1,000 mg/ (Sodium Chloride) 110 mls @ 660 mls/hr IV ONETIME PRN PRN Reason: Bleeding Ibuprofen (Ibuprofen 800 Mg Tab) 800 mg PO Q8H PRN PRN Reason: Cramping Last Admin: 01/06/21 09:04 Dose: 800 mg Documented by: Methylergonovine Maleate (Methylergonovine 0.2 Mg/1 Ml Amp) 0.2 mg IM ONETIME PRN PRN Reason: Excessive Vaginal Bleeding Misoprostol (Misoprostol 200 Mcg Tab) 1,000 mcg RECTAL ONETIME PRN PRN Reason: excessive bleeding Ondansetron HCl (Ondansetron 4 Mg/2 Ml Sdv) 4 mg IVPUSH Q4H PRN PRN Reason: Nausea/Vomiting Oxycodone/Acetaminophen (Acetaminophen/Oxycodone 325-5 Mg Tab) 1 tab PO Q4H PRN PRN Reason: Pain (severe 7-10) Oxycodone/Acetaminophen (Acetaminophen/Oxycodone 325-5 Mg Tab) 2 tab PO Q4H PRN PRN Reason: Pain (severe 7-10) Last Admin: 01/05/21 17:08 Dose: 2 tab Documented by: Oxytocin (Oxytocin 10 Units/1 Ml Sdv) 10 unit IM ASDIRECTED PRN PRN Reason: Excessive Vaginal Bleeding Sodium Chloride (Sodium Chloride 0.9% 10 Ml Syringe) 10 ml FLUSH ASDIRECTED PRN PRN Reason: Keep Vein Open Sodium Chloride (Sodium Chloride 0.9% 2.5 Ml Syringe) 2.5 ml FLUSH ASDIRECTED PRN PRN Reason: Keep Vein Open Sodium Chloride (Sodium Chloride 0.9% 10 Ml Sdv) 10 ml IV ASDIRECTED PRN PRN Reason: IV Use Discontinued Medications Citric Acid/Sodium Citrate (Citric Acid/Sodium Citrate Solution 30 Ml Cup) 30 ml PO ONETIME ONE Stop: 01/04/21 23:05 Last Admin: 01/05/21 12:48 Dose: Not Given Documented by: Fentanyl (Fentanyl 100 Mcg/2 Ml Sdv) Confirm Administered Dose 100 mcg .ROUTE .STK-MED ONE Stop: 01/04/21 22:56 Fentanyl (Fentanyl 100 Mcg/2 Ml Sdv) Confirm Administered Dose 100 mcg .ROUTE .STK-MED ONE Stop: 01/05/21 00:24 Clindamycin Phosphate 900 mg/ (Premix) 50 mls @ 100 mls/hr IV NOW ONE Stop: 01/04/21 23:59 Last Admin: 01/05/21 07:29 Dose: Not Given Documented by: Ketorolac Tromethamine (Ketorolac 30 Mg/Ml Sdv) Confirm Administered Dose 30 mg .ROUTE .STK-MED ONE Stop: 01/04/21 22:57 Ketorolac Tromethamine (Ketorolac 30 Mg/Ml Sdv) 30 mg IVPUSH Q6H LEEANNE Stop: 01/06/21 02:01 Last Admin: 01/06/21 03:15 Dose: 30 mg Documented by: Miscellaneous Medication (Phenylephrine Hcl In 0.9% Nacl 1 Mg/10 Ml Syringe) Confirm Administered Dose 1 mg .ROUTE .STK-MED ONE Stop: 01/04/21 22:57 Miscellaneous Medication (Phenylephrine Hcl In 0.9% Nacl 1 Mg/10 Ml Syringe) Confirm Administered Dose 1 mg .ROUTE .STK-MED ONE Stop: 01/05/21 01:19 Morphine Sulfate (Morphine Pf 10 Mg/10 Ml Sdv) Confirm Administered Dose 10 mg .ROUTE .STK-MED ONE Stop: 01/04/21 22:56 Octyl Cyanoacrylate (Octyl 2-Cyanoacrylate 1 Tube) Confirm Administered Dose 1 applic .ROUTE .STK-MED ONE Stop: 01/04/21 23:22 Last Admin: 01/05/21 12:48 Dose: Not Given Documented by: Ondansetron HCl (Ondansetron 4 Mg/2 Ml Sdv) Confirm Administered Dose 4 mg .ROUTE .STK-MED ONE Stop: 01/04/21 22:57 Ondansetron HCl (Ondansetron 4 Mg/2 Ml Sdv) Confirm Administered Dose 4 mg .ROUTE .[facility]-MED ONE Stop: 01/05/21 01:39 Oxytocin (Oxytocin 10 Units/1 Ml Sdv) Confirm Administered Dose 30 unit .ROUTE .STK-MED ONE Stop: 01/04/21 22:57 Oxytocin (Oxytocin 10 Units/1 Ml Sdv) Confirm Administered Dose 40 unit .ROUTE .ST-MED ONE Stop: 01/05/21 01:19 - Exam General: Reports: Alert, Oriented, Cooperative, No Acute Distress HEENT: Reports: Pupils Equal, Mucous Membr. Moist/[place] Neck: Reports: Supple Lungs: Reports: Clear to Auscultation, Normal Respiratory Effort Cardiovascular: Reports: Regular Rate, Regular Rhythm GI/Abdominal Exam: Normal Bowel Sounds, Soft, Non-Tender, No Organomegaly, No Distention (Female) Exam: Normal External Exam, Enlarged Uterus, Vaginal Bleeding Rectal (Female) Exam: Deferred Back Exam: Reports: Normal Inspection, Full Range of Motion Extremities: Normal Inspection, Normal Range of Motion, Non-Tender, No Pedal Edema, Normal Capillary Refill Skin: Reports: Warm, Dry, Intact Wound/Incisions: Reports: Dressing Dry and Intact, No Drainage Neurological: Reports: No New Focal Deficit Psy/Mental Status: Reports: Alert, Normal Affect, Normal Mood
[2021-01-06] MEDS: Acetaminophen/oxyCODONE 325-5 MG Tab PO PRN (10:42)
== END 2021-01-06 17:15 | disposition home or self-care (01) | DRG 788 ==
LOC: MW.OBCHECK 21:22 → MW.OB 21:22 → MW.OBCHECK 23:05 → MW.OB 23:05
PROVIDERS: ADMIT Obstetrics & Gynecology; ATTEND Obstetrics & Gynecology
PROC: 10D00Z1 Extraction of Products of Conception, Low, Open Approach (ICD-10-PCS; principal; 2021-01-04)
DX: O24.425 Gestational diabetes mellitus in childbirth, controlled by oral hypoglycemic drugs (principal); Z3A.38 38 weeks gestation of pregnancy; Z37.0 Single live birth; O77.0 Labor and delivery complicated by meconium in amniotic fluid; Z88.1 Allergy status to other antibiotic agents; Z79.82 Long term (current) use of aspirin; Z79.899 Other long term (current) drug therapy; O99.214 Obesity complicating childbirth
CPT/HCPCS: 36415; 82947; 84112; 85014; 85018; 85027; 86592; 86850; 86900; 86901; A9270-GY; J1200; J1885; J2270; J2370; J2405; J2590; J3010; J7120

== ENCOUNTER 2021-06-18 11:38 | Emergency (ER) | payer MEDICAID ==
[2021-06-18] MEDS ORDERED: Ketorolac 60 MG/2 ML SDV IM ONE (12:20)
[2021-06-18 13:21] LABS: BLOOD UREA NITROGEN,BUN 11 mg/dL (7.0-18.0); CARBON DIOXIDE,CO2 27.5 mmol/L (21.0-32.0); CHLORIDE,CL 103 mmol/L (98-107); ESTIMATED GFR > 60.0 ml/min; GLUCOSE RANDOM 90 mg/dL (74-106); POTASSIUM,K 4.2 mmol/L (3.5-5.1); SODIUM,NA 136 mmol/L (136-145)
== END 2021-06-18 14:38 | disposition home or self-care (01) ==
LOC: MW.ED 11:38
DX: M79.644 Pain in right finger(s) (principal); E66.9 Obesity, unspecified; Z88.1 Allergy status to other antibiotic agents; Z68.41 Body mass index [BMI] 40.0-44.9, adult
CPT/HCPCS: 36415; 73140; 80053; 85025; 96372; 99283; J1885

== ENCOUNTER 2021-06-25 22:39 | Emergency (ER) | payer MEDICAID ==
[2021-06-25] MEDS ORDERED: diphenhydrAMINE 50 MG/ML SDV IVPUSH ONE (23:28)
[2021-06-25] MEDS ORDERED: Prochlorperazine 10 MG/2 ML SDV IVPUSH ONE (23:28)
[2021-06-25] MEDS ORDERED: Ketorolac 30 MG/ML SDV IVPUSH ONE (23:28)
[2021-06-25] MEDS ORDERED: Dextrose 5%-0.9% NaCl 1,000 ML IV SCH (23:30)
[2021-06-26] MEDS ORDERED: Dexamethasone 10 MG/ML SDV IVPUSH ONE (01:19)
== END 2021-06-26 01:44 | disposition home or self-care (01) ==
LOC: MW.ED 22:39
DX: G43.909 Migraine, unspecified, not intractable, without status migrainosus (principal); I10 Essential (primary) hypertension; E66.9 Obesity, unspecified; Z88.8 Allergy status to other drugs, medicaments and biological substances; Z68.41 Body mass index [BMI] 40.0-44.9, adult
CPT/HCPCS: 70450; 96374; 96375; 99284; J0780; J1100; J1200; J1885; J7042; 99283

== ENCOUNTER 2021-12-14 19:11 | Emergency (ER) | payer BC, MEDICAID | END 2021-12-14 21:47 | disposition home or self-care (01) | LOC: MW.ED 19:11 | DX: H92.02 Otalgia, left ear (principal); E66.9 Obesity, unspecified; Z68.41 Body mass index [BMI] 40.0-44.9, adult; Z88.1 Allergy status to other antibiotic agents | CPT/HCPCS: 99282 ==

== ENCOUNTER 2022-02-12 16:57 | Emergency (ER) | payer BC, MEDICAID ==
[2022-02-12] MEDS ORDERED: Ibuprofen 600 MG Tab PO ONE (17:20)
[2022-02-12] MEDS ORDERED: Acetaminophen/Butalbital/Caffeine 325-50-40 MG Tab PO ONE (17:20)
== END 2022-02-12 19:04 | disposition home or self-care (01) ==
LOC: MW.ED 16:57
DX: G44.52 New daily persistent headache (NDPH) (principal); E66.9 Obesity, unspecified; Z68.41 Body mass index [BMI] 40.0-44.9, adult; Z88.1 Allergy status to other antibiotic agents
CPT/HCPCS: 70450; 81025; 99284; A9270

== ENCOUNTER 2022-12-13 01:26 | Emergency (ER) | payer OTHER, BC, MEDICAID ==
[2022-12-13] MEDS ORDERED: Ibuprofen 400 MG Tab PO ONE (01:43)
[2022-12-13] MEDS ORDERED: Lidocaine 4% 1 each Patch TOP PRN (01:43)
[2022-12-13] MEDS ORDERED: Acetaminophen 325 MG Tab PO ONE (01:43)
== END 2022-12-13 02:29 | disposition home or self-care (01) ==
LOC: MW.ED 01:26
DX: M25.512 Pain in left shoulder (principal); E66.9 Obesity, unspecified; Z68.39 Body mass index [BMI] 39.0-39.9, adult; Z88.1 Allergy status to other antibiotic agents
CPT/HCPCS: 99283; A9270

== ENCOUNTER 2023-03-23 09:38 | Emergency (ER) | payer OTHER, MEDICAID ==
[2023-03-23] MEDS ORDERED: Acetaminophen/HYDROcodone 325-5 MG Tab PO ONE (09:46)
[2023-03-23] MEDS ORDERED: Ondansetron 4 MG Tab.DIS PO ONE (09:46)
== END 2023-03-23 11:20 | disposition home or self-care (01) ==
LOC: MW.ED 09:38
DX: S60.221A Contusion of right hand, initial encounter (principal); I10 Essential (primary) hypertension; E11.9 Type 2 diabetes mellitus without complications; E66.9 Obesity, unspecified; Z68.38 Body mass index [BMI] 38.0-38.9, adult; Z88.8 Allergy status to other drugs, medicaments and biological substances; W19.XXXA Unspecified fall, initial encounter; Y93.01 Activity, walking, marching and hiking
CPT/HCPCS: 73110; 99283; A9270